=== PATIENT | female | born 1990 | race Caucasian/White ===

== ENCOUNTER 2017-02-24 16:15 | Emergency (ER) | payer MEDICAID ==
[~2017-02-24] VITALS: Ht 180011.9 cm; Wt 89.5 kg
[~2017-02-24 16:15] MED LIST: CETI10TA18 PO; CHOL2000 PO; CLON-529 PO; CYAN250010 PO; ESCI20TA38 PO; FLUT16SP26 BOTHNARES; IBUP-1985 PO; LORA1TAB PO; LURA120T PO; RANI-366 PO; RISP2TAB97 PO; TOP100T PO
[2017-02-24] MEDS ORDERED: RISP1TAB13 PO (16:51)
[2017-02-24] MEDS ORDERED: LORA1TAB PO (16:53)
[2017-02-24] MEDS ORDERED: OLAN5TAB3 PO (16:55)
[2017-02-24 18:04] LABS: BASOPHILS % (AUTO) 0.4 % (0-1); EOSINOPHILS % (AUTO) 0.6 % (0-6); HEMATOCRIT 35.2 % (35.0-45.0); HEMOGLOBIN 11.9 g/dl (12.0-16.0); LYMPHOCYTES # (AUTO) 1.5 X10'3 (1.1-4.8); LYMPHOCYTES % (AUTO) 31.2 % (21-51); MEAN CORPUSCULAR HEMOGLOBIN 28.6 PG (27.0-31.0); MEAN CORPUSCULAR HGB CONC 33.8 % (33.0-36.5); MEAN CORPUSCULAR VOLUME 84.6 FL (78-98); MEAN PLATELET VOLUME 8.8 FL (7.4-10.4); MONOCYTES # (AUTO) 0.3 X10'3 (0-0.9); MONOCYTES % (AUTO) 5.6 % (2-12); NEUTROPHILS % (AUTO) 62.2 % (42-75); PLATELET COUNT 65 X10'3 (140-440); RED BLOOD COUNT 4.17 X10'6 (4.20-5.60); RED CELL DISTRIBUTION WIDTH 14.2 % (11.5-14.5); WHITE BLOOD COUNT 4.8 X10'3 (4.5-11.0)
[2017-02-24 18:14] LABS: URINE HCG NEGATIVE (NEG)
[2017-02-24 18:15] LABS: CLARITY,URINE CLEAR (Clear); COLOR,URINE YELLOW (Yellow); GLUCOSE, URINE NEGATIVE (Neg); KETONES,URINE NEGATIVE (Neg); LEUKOCYTE ESTERASE ,URINE NEGATIVE (Neg); NITRITES, URINE NEGATIVE (Neg); OCCULT BLOOD,URINE TRACE-LYSED (Neg); PROTEIN,URINE NEGATIVE (Neg); UROBILINOGEN,URINE 0.2 E.U/dL (0.2-1.0)
[2017-02-24 18:17] LABS: UA COLLECTION TYPE VOIDED
[2017-02-24 18:19] LABS: URINE AMPHETAMINE SCREEN NEGATIVE (Neg); URINE BARBITUATE SCREEN NEGATIVE (Neg); URINE BENZODIAZEPINES SCREEN NEGATIVE (Neg); URINE CANNABINOID SCREEN NEGATIVE (Neg); URINE COCAINE SCREEN NEGATIVE (Neg); URINE METHADONE SCREEN NEGATIVE (Neg); URINE OPIATE SCREEN NEGATIVE (Neg); URINE PHENCYCLIDINE SCREEN NEGATIVE (Neg)
[2017-02-24 18:22] LABS: BACTERIA,URINE FEW /HPF (Neg); RBC,URINE 0-2 /HPF (0-2); SQUAMOUS EPITHELIAL CELL,UR MODERATE /LPF (FEW); WBC,URINE 0-4 /HPF (0-4)
[2017-02-24 18:24] LABS: ALANINE AMINOTRANSFERASE 111 U/L (12-78); ALBUMIN 3.4 G/DL (3.4-5.0); ALBUMIN/GLOBULIN RATIO 0.9 (1.1-1.5); ALKALINE PHOSPHATASE 167 IU/L (46-116); ANION GAP 11 (8-16); ASPARTATE AMINO TRANSFERASE 55 U/L (10-37); BILIRUBIN,TOTAL 0.4 MG/DL (0.1-1.0); BLOOD UREA NITROGEN 12 MG/DL (7-18); BUN/CREATININE RATIO 16.2 (6.6-38.0); CALCIUM 9.1 MG/DL (8.5-10.1); CHLORIDE 113 MMOL/L (99-107); CREATININE 0.74 MG/DL (0.40-0.90); GLUCOSE 119 MG/DL (70-104); POTASSIUM 3.4 MMOL/L (3.5-5.1); SODIUM 147 MMOL/L (135-145); TOTAL CARBON DIOXIDE 23.4 MMOL/L (24-32); TOTAL PROTEIN 7.3 G/DL (6.4-8.2); eGFR > 90 ML/MIN
[2017-02-24 18:30] LABS: ETHANOL < 0.010 GM/DL (0.0-0.010)
[2017-02-25] MEDS: cloNIDine 0.1 mg tablet PO SCH ×2 (02:23→20:42)
[2017-02-25] MEDS: OLANZapine 2.5MG tablet PO SCH ×2 (02:23→20:42)
[2017-02-25] MEDS ORDERED: non-formulary drug (Ranitidine Hcl (Zantac) 150 MG) PO SCH (07:00)
[2017-02-25] MEDS: famotidine 20mg tablet PO SCH ×3 (07:00→17:28)
[2017-02-25] MEDS: topiramate 100mg tablet PO SCH ×3 (07:50→20:42)
[2017-02-25] MEDS: vitamin D (cholecalciferol) 1,000 unit tablet PO SCH (07:50)
[2017-02-25] MEDS: risperiDONE 0.5mg tablet PO SCH (07:50)
[2017-02-25] MEDS: cyanocobalamin 500mcg tablet PO SCH (08:38)
[2017-02-25] MEDS: cetirizine 10mg tablet PO SCH (08:39)
[2017-02-25] MEDS: fluticasone nasal spray 16GM bottle NS PRN (08:40)
[2017-02-25] MEDS: lithium carbonate 150mg capsule PO SCH (20:42)
[2017-02-26] MEDS: topiramate 100mg tablet PO SCH ×2 (08:43→20:54)
[2017-02-26] MEDS: famotidine 20mg tablet PO SCH ×2 (08:43→17:50)
[2017-02-26] MEDS: cetirizine 10mg tablet PO SCH (08:43)
[2017-02-26] MEDS: risperiDONE 0.5mg tablet PO SCH (08:43)
[2017-02-26] MEDS: vitamin D (cholecalciferol) 1,000 unit tablet PO SCH (08:43)
[2017-02-26] MEDS: cyanocobalamin 500mcg tablet PO SCH (08:44)
[2017-02-26] MEDS: lithium carbonate 150mg capsule PO SCH ×2 (08:44→20:48)
[2017-02-26] MEDS: OLANZapine 2.5MG tablet PO SCH (20:47)
[2017-02-26] MEDS: cloNIDine 0.1 mg tablet PO SCH (20:48)
[2017-02-26] MEDS: LORazepam 1 MG tablet PO PRN (20:48)
[2017-02-27] MEDS: cyanocobalamin 500mcg tablet PO SCH (09:07)
[2017-02-27] MEDS: topiramate 100mg tablet PO SCH ×2 (09:08→20:31)
[2017-02-27] MEDS: famotidine 20mg tablet PO SCH ×2 (09:08→17:48)
[2017-02-27] MEDS: risperiDONE 0.5mg tablet PO SCH (09:08)
[2017-02-27] MEDS: cetirizine 10mg tablet PO SCH (09:09)
[2017-02-27] MEDS: vitamin D (cholecalciferol) 1,000 unit tablet PO SCH (09:09)
[2017-02-27] MEDS: lithium carbonate 150mg capsule PO SCH ×2 (09:09→20:33)
[2017-02-27] MEDS: cloNIDine 0.1 mg tablet PO SCH (20:31)
[2017-02-27] MEDS: OLANZapine 5mg rapidly disint. tablet PO SCH (20:31)
[2017-02-27] MEDS: ibuprofen 200mg tablet PO PRN (20:33)
[2017-02-28] MEDS: famotidine 20mg tablet PO SCH ×2 (08:24→16:21)
[2017-02-28] MEDS: OLANZapine 5mg rapidly disint. tablet PO SCH ×2 (08:25→20:28)
[2017-02-28] MEDS: vitamin D (cholecalciferol) 1,000 unit tablet PO SCH (08:25)
[2017-02-28] MEDS: risperiDONE 0.5mg tablet PO SCH (08:25)
[2017-02-28] MEDS: cetirizine 10mg tablet PO SCH (08:25)
[2017-02-28] MEDS: lithium carbonate 150mg capsule PO SCH ×2 (08:25→20:26)
[2017-02-28] MEDS: topiramate 100mg tablet PO SCH ×2 (08:25→20:27)
[2017-02-28] MEDS: cyanocobalamin 500mcg tablet PO SCH (08:34)
[2017-02-28] MEDS: fluticasone nasal spray 16GM bottle NS PRN (08:34)
[2017-02-28] MEDS: LORazepam 1 MG tablet PO PRN ×2 (11:12→20:27)
[2017-02-28] MEDS: ibuprofen 200mg tablet PO PRN (12:13)
[2017-02-28] MEDS: cloNIDine 0.1 mg tablet PO SCH (20:27)
[2017-03-01] MEDS: famotidine 20mg tablet PO SCH ×2 (08:01→17:34)
[2017-03-01] MEDS: OLANZapine 5mg rapidly disint. tablet PO SCH ×2 (08:01→20:34)
[2017-03-01] MEDS: cetirizine 10mg tablet PO SCH (08:01)
[2017-03-01] MEDS: cyanocobalamin 500mcg tablet PO SCH (08:01)
[2017-03-01] MEDS: vitamin D (cholecalciferol) 1,000 unit tablet PO SCH (08:01)
[2017-03-01] MEDS: topiramate 100mg tablet PO SCH ×2 (08:02→20:34)
[2017-03-01] MEDS: risperiDONE 0.5mg tablet PO SCH (08:02)
[2017-03-01] MEDS: lithium carbonate 150mg capsule PO SCH ×2 (08:02→20:34)
[2017-03-01] MEDS: fluticasone nasal spray 16GM bottle NS PRN (08:03)
[2017-03-01] MEDS: LORazepam 1 MG tablet PO PRN (20:34)
[2017-03-01] MEDS: cloNIDine 0.1 mg tablet PO SCH (20:34)
[2017-03-02] MEDS: fluticasone nasal spray 16GM bottle NS PRN (06:44)
[2017-03-02] MEDS: risperiDONE 0.5mg tablet PO SCH (07:29)
[2017-03-02] MEDS: cetirizine 10mg tablet PO SCH (07:29)
[2017-03-02] MEDS: vitamin D (cholecalciferol) 1,000 unit tablet PO SCH (07:29)
[2017-03-02] MEDS: famotidine 20mg tablet PO SCH ×2 (07:29→17:19)
[2017-03-02] MEDS: OLANZapine 5mg rapidly disint. tablet PO SCH ×2 (07:30→20:31)
[2017-03-02] MEDS: cyanocobalamin 500mcg tablet PO SCH (07:32)
[2017-03-02] MEDS: topiramate 100mg tablet PO SCH ×2 (07:42→20:32)
[2017-03-02] MEDS: lithium carbonate 300mg SR tablet (LithoBID) PO SCH (08:16)
[2017-03-02] MEDS: cloNIDine 0.1 mg tablet PO SCH (20:31)
[2017-03-02] MEDS: lithium carbonate 150mg capsule PO SCH (20:32)
[2017-03-03] MEDS: famotidine 20mg tablet PO SCH ×2 (07:18→17:18)
[2017-03-03] MEDS: lithium carbonate 300mg SR tablet (LithoBID) PO SCH (08:35)
[2017-03-03] MEDS: OLANZapine 5mg rapidly disint. tablet PO SCH ×2 (08:35→20:46)
[2017-03-03] MEDS: topiramate 100mg tablet PO SCH ×2 (08:35→21:03)
[2017-03-03] MEDS: vitamin D (cholecalciferol) 1,000 unit tablet PO SCH (08:35)
[2017-03-03] MEDS: risperiDONE 0.5mg tablet PO SCH (08:36)
[2017-03-03] MEDS: cetirizine 10mg tablet PO SCH (08:36)
[2017-03-03] MEDS: fluticasone nasal spray 16GM bottle NS PRN (08:40)
[2017-03-03] MEDS: cyanocobalamin 500mcg tablet PO SCH (10:48)
[2017-03-03] MEDS: LORazepam 1 MG tablet PO PRN ×2 (12:31→20:46)
[2017-03-03] MEDS: lithium carbonate 150mg capsule PO SCH (20:46)
[2017-03-03] MEDS: cloNIDine 0.1 mg tablet PO SCH (20:46)
[2017-03-04] MEDS: lithium carbonate 300mg SR tablet (LithoBID) PO SCH (07:59)
[2017-03-04] MEDS: vitamin D (cholecalciferol) 1,000 unit tablet PO SCH (07:59)
[2017-03-04] MEDS: famotidine 20mg tablet PO SCH ×2 (07:59→17:27)
[2017-03-04] MEDS: LORazepam 1 MG tablet PO PRN (07:59)
[2017-03-04] MEDS: OLANZapine 5mg rapidly disint. tablet PO SCH (07:59)
[2017-03-04] MEDS: cetirizine 10mg tablet PO SCH (07:59)
[2017-03-04] MEDS: risperiDONE 0.5mg tablet PO SCH (07:59)
[2017-03-04 08:19] LABS: ALANINE AMINOTRANSFERASE 127 U/L (12-78); ALBUMIN 3.6 G/DL (3.4-5.0); ALBUMIN/GLOBULIN RATIO 0.9 (1.1-1.5); ALKALINE PHOSPHATASE 186 IU/L (46-116); ANION GAP 10 (8-16); ASPARTATE AMINO TRANSFERASE 59 U/L (10-37); BILIRUBIN,TOTAL 0.5 MG/DL (0.1-1.0); BLOOD UREA NITROGEN 12 MG/DL (7-18); BUN/CREATININE RATIO 18.5 (6.6-38.0); CALCIUM 9.3 MG/DL (8.5-10.1); CHLORIDE 110 MMOL/L (99-107); CREATININE 0.65 MG/DL (0.40-0.90); GLUCOSE 90 MG/DL (70-104); LIPASE 258 U/L (73-393); POTASSIUM 3.7 MMOL/L (3.5-5.1); SODIUM 142 MMOL/L (135-145); TOTAL CARBON DIOXIDE 22.4 MMOL/L (24-32); TOTAL PROTEIN 7.7 G/DL (6.4-8.2); eGFR > 90 ML/MIN
[2017-03-04] MEDS ORDERED: LORazepam 1 MG tablet PO ONE (08:45)
[2017-03-04] MEDS ORDERED: chlordiazePOXIDE 25mg capsule PO ONE (08:45)
[2017-03-04] MEDS: topiramate 100mg tablet PO SCH (09:14)
[2017-03-04] MEDS: cyanocobalamin 500mcg tablet PO SCH (09:15)
[2017-03-04] MEDS ORDERED: OLAN10TA3 PO (09:16)
[2017-03-04] MEDS ORDERED: OLAN5TAB3 PO (09:16)
[2017-03-04] MEDS: fluticasone nasal spray 16GM bottle NS PRN (09:22)
[2017-03-04 17:36] VITALS: BP 103/73
== END 2017-03-04 17:46 | disposition home or self-care (01) ==
LOC: ER 16:16
DX: F31.89 Other bipolar disorder (principal); R45.850 Homicidal ideations; R62.59 Other lack of expected normal physiological development in childhood; Z88.2 Allergy status to sulfonamides; Z79.899 Other long term (current) drug therapy
CPT/HCPCS: 36415; 80053; 80178; 80305; 80320; 81001; 81025; 83690; 84443; 85025; 99285

== ENCOUNTER 2017-03-14 13:51 | Emergency (ER) | payer MEDICAID ==
[~2017-03-14] VITALS: Ht 5852547 cm; Wt 90.9 kg
[~2017-03-14 13:51] MED LIST changes: -ESCI20TA38 PO; -LURA120T PO; +OLAN10TA3 PO; +OLAN5TAB3 PO; +RISP1TAB13 PO; -RISP2TAB97 PO
[2017-03-14 14:30] LABS: BASOPHILS % (AUTO) 0.2 % (0-1); EOSINOPHILS # (AUTO) 0.1 X10'3 (0-0.9); EOSINOPHILS % (AUTO) 1.3 % (0-6); HEMATOCRIT 38.7 % (35.0-45.0); HEMOGLOBIN 13.1 g/dl (12.0-16.0); LYMPHOCYTES # (AUTO) 1.6 X10'3 (1.1-4.8); LYMPHOCYTES % (AUTO) 29.9 % (21-51); MEAN CORPUSCULAR HEMOGLOBIN 28.6 PG (27.0-31.0); MEAN CORPUSCULAR HGB CONC 33.9 % (33.0-36.5); MEAN CORPUSCULAR VOLUME 84.4 FL (78-98); MEAN PLATELET VOLUME 9.3 FL (7.4-10.4); MONOCYTES # (AUTO) 0.2 X10'3 (0-0.9); MONOCYTES % (AUTO) 4.3 % (2-12); NEUTROPHILS # (AUTO) 3.4 X10'3 (1.8-7.7); NEUTROPHILS % (AUTO) 64.3 % (42-75); PLATELET COUNT 84 X10'3 (140-440); RED BLOOD COUNT 4.59 X10'6 (4.20-5.60); RED CELL DISTRIBUTION WIDTH 14.6 % (11.5-14.5); WHITE BLOOD COUNT 5.3 X10'3 (4.5-11.0)
[2017-03-14 14:53] LABS: ALANINE AMINOTRANSFERASE 129 U/L (12-78); ALBUMIN 3.7 G/DL (3.4-5.0); ALBUMIN/GLOBULIN RATIO 0.9 (1.1-1.5); ALKALINE PHOSPHATASE 192 IU/L (46-116); ANION GAP 13 (8-16); ASPARTATE AMINO TRANSFERASE 65 U/L (10-37); BILIRUBIN,TOTAL 0.4 MG/DL (0.1-1.0); BLOOD UREA NITROGEN 9 MG/DL (7-18); CALCIUM 9.5 MG/DL (8.5-10.1); CHLORIDE 111 MMOL/L (99-107); ETHANOL < 0.010 GM/DL (0.0-0.010); GLUCOSE 90 MG/DL (70-104); POTASSIUM 3.5 MMOL/L (3.5-5.1); SODIUM 146 MMOL/L (135-145); TOTAL CARBON DIOXIDE 22.2 MMOL/L (24-32); TOTAL PROTEIN 7.9 G/DL (6.4-8.2); eGFR > 90 ML/MIN
[2017-03-14] MEDS ORDERED: CYAN-19 PO (19:29)
[2017-03-14] MEDS ORDERED: LIT300C PO (19:34)
[2017-03-14 19:42] LABS: URINE HCG NEGATIVE (NEG)
[2017-03-14 19:46] LABS: CLARITY,URINE CLEAR (Clear); COLOR,URINE YELLOW (Yellow); GLUCOSE, URINE NEGATIVE (Neg); KETONES,URINE NEGATIVE (Neg); LEUKOCYTE ESTERASE ,URINE TRACE (Neg); NITRITES, URINE NEGATIVE (Neg); OCCULT BLOOD,URINE NEGATIVE (Neg); PROTEIN,URINE NEGATIVE (Neg); UROBILINOGEN,URINE 0.2 E.U/dL (0.2-1.0)
[2017-03-14 19:50] LABS: UA COLLECTION TYPE NON-SPECIFIED
[2017-03-14 19:51] LABS: BACTERIA,URINE FEW /HPF (Neg); RBC,URINE 0-2 /HPF (0-2); SQUAMOUS EPITHELIAL CELL,UR MODERATE /LPF (FEW)
[2017-03-14 19:52] LABS: URINE AMPHETAMINE SCREEN NEGATIVE (Neg); URINE BARBITUATE SCREEN NEGATIVE (Neg); URINE BENZODIAZEPINES SCREEN NEGATIVE (Neg); URINE CANNABINOID SCREEN NEGATIVE (Neg); URINE COCAINE SCREEN NEGATIVE (Neg); URINE METHADONE SCREEN NEGATIVE (Neg); URINE OPIATE SCREEN NEGATIVE (Neg); URINE PHENCYCLIDINE SCREEN NEGATIVE (Neg)
[2017-03-14] MEDS ORDERED: haloperidol lactate 5mg/ml inj IM PRN (19:55)
[2017-03-14] MEDS: LORazepam 1 MG tablet PO PRN (20:25)
[2017-03-14] MEDS: topiramate 100mg tablet PO SCH (20:25)
[2017-03-14] MEDS: OLANZapine 5mg rapidly disint. tablet PO SCH (20:25)
[2017-03-14] MEDS: lithium carbonate 300mg SR tablet (LithoBID) PO SCH (20:25)
[2017-03-14] MEDS: cloNIDine 0.1 mg tablet PO SCH (20:25)
[2017-03-15] MEDS: vitamin D (cholecalciferol) 1,000 unit tablet PO SCH (08:40)
[2017-03-15] MEDS: topiramate 100mg tablet PO SCH ×2 (08:40→19:33)
[2017-03-15] MEDS: OLANZapine 5mg rapidly disint. tablet PO SCH ×2 (08:40→19:32)
[2017-03-15] MEDS: lithium carbonate 300mg SR tablet (LithoBID) PO SCH ×2 (08:41→19:33)
[2017-03-15] MEDS: cetirizine 10mg tablet PO SCH (08:41)
[2017-03-15] MEDS: cyanocobalamin 500mcg tablet PO SCH (08:42)
[2017-03-15] MEDS: famotidine 20mg tablet PO SCH ×2 (08:51→19:32)
[2017-03-15] MEDS: LORazepam 1 MG tablet PO PRN (19:32)
[2017-03-15] MEDS: cloNIDine 0.1 mg tablet PO SCH (19:33)
[2017-03-16] MEDS: vitamin D (cholecalciferol) 1,000 unit tablet PO SCH (07:39)
[2017-03-16] MEDS: famotidine 20mg tablet PO SCH ×2 (07:40→17:15)
[2017-03-16] MEDS: lithium carbonate 300mg SR tablet (LithoBID) PO SCH ×2 (07:40→20:19)
[2017-03-16] MEDS: OLANZapine 5mg rapidly disint. tablet PO SCH ×2 (07:40→20:21)
[2017-03-16] MEDS: cetirizine 10mg tablet PO SCH (07:40)
[2017-03-16] MEDS: topiramate 100mg tablet PO SCH ×2 (07:40→20:27)
[2017-03-16] MEDS: cyanocobalamin 500mcg tablet PO SCH (09:01)
[2017-03-16] MEDS: cloNIDine 0.1 mg tablet PO SCH (20:20)
[2017-03-16] MEDS: LORazepam 1 MG tablet PO PRN (20:20)
[2017-03-16] MEDS: haloperidol 5mg tablet PO PRN (20:22)
[2017-03-16 23:35] LABS: BASOPHILS % (AUTO) 0.3 % (0-1); EOSINOPHILS # (AUTO) 0.1 X10'3 (0-0.9); HEMATOCRIT 36.4 % (35.0-45.0); HEMOGLOBIN 12.4 g/dl (12.0-16.0); LYMPHOCYTES # (AUTO) 1.8 X10'3 (1.1-4.8); LYMPHOCYTES % (AUTO) 32.6 % (21-51); MEAN CORPUSCULAR HEMOGLOBIN 28.5 PG (27.0-31.0); MEAN PLATELET VOLUME 8.6 FL (7.4-10.4); MONOCYTES # (AUTO) 0.3 X10'3 (0-0.9); MONOCYTES % (AUTO) 5.5 % (2-12); NEUTROPHILS # (AUTO) 3.4 X10'3 (1.8-7.7); NEUTROPHILS % (AUTO) 60.6 % (42-75); PLATELET COUNT 75 X10'3 (140-440); RED BLOOD COUNT 4.34 X10'6 (4.20-5.60); RED CELL DISTRIBUTION WIDTH 14.1 % (11.5-14.5); WHITE BLOOD COUNT 5.6 X10'3 (4.5-11.0)
[2017-03-16 23:48] LABS: ALANINE AMINOTRANSFERASE 106 U/L (12-78); ALBUMIN 3.5 G/DL (3.4-5.0); ALBUMIN/GLOBULIN RATIO 0.9 (1.1-1.5); ALKALINE PHOSPHATASE 172 IU/L (46-116); ANION GAP 11 (8-16); ASPARTATE AMINO TRANSFERASE 52 U/L (10-37); BILIRUBIN,TOTAL 0.5 MG/DL (0.1-1.0); BLOOD UREA NITROGEN 11 MG/DL (7-18); BUN/CREATININE RATIO 13.8 (6.6-38.0); CALCIUM 9.3 MG/DL (8.5-10.1); CHLORIDE 111 MMOL/L (99-107); GLUCOSE 96 MG/DL (70-104); POTASSIUM 3.5 MMOL/L (3.5-5.1); SODIUM 144 MMOL/L (135-145); TOTAL CARBON DIOXIDE 22.1 MMOL/L (24-32); TOTAL PROTEIN 7.3 G/DL (6.4-8.2); eGFR 88 ML/MIN
[2017-03-17] MEDS: lithium carbonate 300mg SR tablet (LithoBID) PO SCH ×2 (07:44→21:07)
[2017-03-17] MEDS: cyanocobalamin 500mcg tablet PO SCH (07:44)
[2017-03-17] MEDS: topiramate 100mg tablet PO SCH ×2 (07:44→21:07)
[2017-03-17] MEDS: vitamin D (cholecalciferol) 1,000 unit tablet PO SCH (07:44)
[2017-03-17] MEDS: cetirizine 10mg tablet PO SCH (07:45)
[2017-03-17] MEDS: famotidine 20mg tablet PO SCH ×2 (07:45→17:03)
[2017-03-17] MEDS: OLANZapine 5mg rapidly disint. tablet PO SCH ×2 (07:46→21:07)
[2017-03-17] MEDS: LORazepam 1 MG tablet PO PRN (09:08)
[2017-03-17] MEDS ORDERED: diphenoxylate/atropine tablet (Lomotil) PO ONE (19:00)
[2017-03-17] MEDS: cloNIDine 0.1 mg tablet PO SCH (20:36)
[2017-03-18] MEDS: OLANZapine 5mg rapidly disint. tablet PO SCH ×2 (07:54→20:34)
[2017-03-18] MEDS: topiramate 100mg tablet PO SCH ×2 (07:54→20:34)
[2017-03-18] MEDS: vitamin D (cholecalciferol) 1,000 unit tablet PO SCH (07:54)
[2017-03-18] MEDS: famotidine 20mg tablet PO SCH ×2 (07:54→17:08)
[2017-03-18] MEDS: lithium carbonate 300mg SR tablet (LithoBID) PO SCH ×2 (07:55→20:33)
[2017-03-18] MEDS: cyanocobalamin 500mcg tablet PO SCH (07:55)
[2017-03-18] MEDS: cetirizine 10mg tablet PO SCH (08:29)
[2017-03-18] MEDS: cloNIDine 0.1 mg tablet PO SCH (20:34)
[2017-03-18] MEDS: fluticasone nasal spray 16GM bottle NS PRN (21:21)
[2017-03-19] MEDS: lithium carbonate 300mg SR tablet (LithoBID) PO SCH ×2 (07:42→20:24)
[2017-03-19] MEDS: vitamin D (cholecalciferol) 1,000 unit tablet PO SCH (07:42)
[2017-03-19] MEDS: cyanocobalamin 500mcg tablet PO SCH (07:42)
[2017-03-19] MEDS: OLANZapine 5mg rapidly disint. tablet PO SCH ×2 (07:43→20:24)
[2017-03-19] MEDS: famotidine 20mg tablet PO SCH ×2 (07:43→17:11)
[2017-03-19] MEDS: cetirizine 10mg tablet PO SCH (07:43)
[2017-03-19] MEDS: topiramate 100mg tablet PO SCH ×2 (08:04→20:24)
[2017-03-19] MEDS: LORazepam 1 MG tablet PO PRN (14:32)
[2017-03-19] MEDS: cloNIDine 0.1 mg tablet PO SCH (20:24)
[2017-03-20] MEDS: famotidine 20mg tablet PO SCH ×2 (07:59→18:31)
[2017-03-20] MEDS: lithium carbonate 300mg SR tablet (LithoBID) PO SCH ×2 (08:00→20:42)
[2017-03-20] MEDS: OLANZapine 5mg rapidly disint. tablet PO SCH ×2 (08:00→20:41)
[2017-03-20] MEDS: cyanocobalamin 500mcg tablet PO SCH (08:00)
[2017-03-20] MEDS: cetirizine 10mg tablet PO SCH (08:00)
[2017-03-20] MEDS: vitamin D (cholecalciferol) 1,000 unit tablet PO SCH (08:00)
[2017-03-20] MEDS: topiramate 100mg tablet PO SCH ×2 (08:55→20:42)
[2017-03-20] MEDS: cloNIDine 0.1 mg tablet PO SCH (20:42)
[2017-03-21] MEDS: lithium carbonate 300mg SR tablet (LithoBID) PO SCH ×2 (08:09→20:21)
[2017-03-21] MEDS: vitamin D (cholecalciferol) 1,000 unit tablet PO SCH (08:09)
[2017-03-21] MEDS: OLANZapine 5mg rapidly disint. tablet PO SCH ×2 (08:09→20:21)
[2017-03-21] MEDS: cyanocobalamin 500mcg tablet PO SCH (08:09)
[2017-03-21] MEDS: famotidine 20mg tablet PO SCH ×2 (08:09→17:39)
[2017-03-21] MEDS: cetirizine 10mg tablet PO SCH (08:09)
[2017-03-21] MEDS: topiramate 100mg tablet PO SCH ×2 (08:29→20:20)
[2017-03-21] MEDS: LORazepam 1 MG tablet PO PRN (10:06)
[2017-03-21] MEDS: cloNIDine 0.1 mg tablet PO SCH (20:21)
[2017-03-22] MEDS: haloperidol 5mg tablet PO PRN (07:55)
[2017-03-22] MEDS: vitamin D (cholecalciferol) 1,000 unit tablet PO SCH (07:55)
[2017-03-22] MEDS: OLANZapine 5mg rapidly disint. tablet PO SCH ×2 (07:55→20:03)
[2017-03-22] MEDS: topiramate 100mg tablet PO SCH ×2 (07:55→20:03)
[2017-03-22] MEDS: famotidine 20mg tablet PO SCH ×2 (07:55→17:22)
[2017-03-22] MEDS: lithium carbonate 300mg SR tablet (LithoBID) PO SCH ×2 (07:55→20:03)
[2017-03-22] MEDS: cetirizine 10mg tablet PO SCH (07:55)
[2017-03-22] MEDS: diphenhydrAMINE 25mg capsule PO PRN (07:55)
[2017-03-22] MEDS: cyanocobalamin 500mcg tablet PO SCH (07:55)
[2017-03-22] MEDS: fluticasone nasal spray 16GM bottle NS PRN (13:48)
[2017-03-22] MEDS: LORazepam 1 MG tablet PO PRN (20:03)
[2017-03-22] MEDS: cloNIDine 0.1 mg tablet PO SCH (20:03)
[2017-03-23] MEDS: famotidine 20mg tablet PO SCH ×2 (07:20→17:11)
[2017-03-23] MEDS: vitamin D (cholecalciferol) 1,000 unit tablet PO SCH (08:04)
[2017-03-23] MEDS: cyanocobalamin 500mcg tablet PO SCH (08:04)
[2017-03-23] MEDS: cetirizine 10mg tablet PO SCH (08:04)
[2017-03-23] MEDS: lithium carbonate 300mg SR tablet (LithoBID) PO SCH ×2 (08:05→20:29)
[2017-03-23] MEDS: topiramate 100mg tablet PO SCH ×2 (08:05→20:29)
[2017-03-23] MEDS: OLANZapine 5mg rapidly disint. tablet PO SCH ×2 (08:05→20:29)
[2017-03-23] MEDS: diphenhydrAMINE 25mg capsule PO PRN (11:19)
[2017-03-23] MEDS: haloperidol 5mg tablet PO PRN (11:19)
[2017-03-23] MEDS: LORazepam 1 MG tablet PO PRN ×2 (13:23→18:49)
[2017-03-23] MEDS: cloNIDine 0.1 mg tablet PO SCH (21:39)
[2017-03-24 06:00] VITALS: BP 117/77
[2017-03-24] MEDS: famotidine 20mg tablet PO SCH (08:35)
[2017-03-24] MEDS: topiramate 100mg tablet PO SCH (08:35)
[2017-03-24] MEDS: cetirizine 10mg tablet PO SCH (08:35)
[2017-03-24] MEDS: haloperidol 5mg tablet PO PRN (08:35)
[2017-03-24] MEDS: vitamin D (cholecalciferol) 1,000 unit tablet PO SCH (08:35)
[2017-03-24] MEDS: diphenhydrAMINE 25mg capsule PO PRN (08:35)
[2017-03-24] MEDS: OLANZapine 5mg rapidly disint. tablet PO SCH (08:35)
[2017-03-24] MEDS: lithium carbonate 300mg SR tablet (LithoBID) PO SCH (08:36)
[2017-03-24] MEDS: LORazepam 1 MG tablet PO PRN (08:36)
[2017-03-24] MEDS: cyanocobalamin 500mcg tablet PO SCH (08:36)
== END 2017-03-24 17:07 | disposition home or self-care (01) ==
LOC: ER 13:51
DX: R45.851 Suicidal ideations (principal); F31.9 Bipolar disorder, unspecified; Z88.2 Allergy status to sulfonamides; Z79.899 Other long term (current) drug therapy
CPT/HCPCS: 36415; 80053; 80178; 80305; 80320; 81001; 81025; 84443; 85025; 99285; Q0163

== ENCOUNTER 2021-07-26 18:18 | Emergency (ER) | payer MEDICAID ==
[~2021-07-26] VITALS: Ht 165.1 cm; Wt 93.5 kg
[~2021-07-26 18:18] MED LIST changes: -CETI10TA18 PO; +CETI10TA19 PO; +CYAN100019 PO; -CYAN250010 PO; -IBUP-1985 PO; +LIT300C PO; -OLAN10TA3 PO
[2021-07-26 19:52] LABS: BASOPHILS % (AUTO) 0.2 % (0-1); EOSINOPHILS % (AUTO) 0 % (0-6); HEMATOCRIT 32.2 % (35.0-45.0); HEMOGLOBIN 10.6 g/dl (12.0-16.0); LYMPHOCYTES # (AUTO) 1.2 X10'3 (1.1-4.8); MEAN CORPUSCULAR HGB CONC 32.9 g/dL (33.0-36.5); MEAN CORPUSCULAR VOLUME 85.1 FL (78-98); MEAN PLATELET VOLUME 8.8 FL (7.4-10.4); MONOCYTES # (AUTO) 0.3 X10'3 (0-0.9); MONOCYTES % (AUTO) 6.8 % (2-12); NEUTROPHILS # (AUTO) 2.4 X10'3 (1.8-7.7); PLATELET COUNT 105 X10'3 (140-440); RED BLOOD COUNT 3.79 X10'6 (4.20-5.60); RED CELL DISTRIBUTION WIDTH 15.2 % (11.5-14.5); WHITE BLOOD COUNT 3.9 X10'3 (4.5-11.0)
[2021-07-26 20:07] LABS: ALBUMIN 3.5 G/DL (3.4-5.0); ANION GAP 12 (8-16); BILIRUBIN,TOTAL 0.5 MG/DL (0.1-1.0); BLOOD UREA NITROGEN 23 MG/DL (7-18); BUN/CREATININE RATIO 21.7 (6.6-38.0); CALCIUM 9.1 MG/DL (8.5-10.1); CHLORIDE 107 MMOL/L (99-107); CREATININE 1.06 MG/DL (0.40-0.90); GLUCOSE 120 MG/DL (70-104); POTASSIUM 3.4 MMOL/L (3.5-5.1); SODIUM 144 MMOL/L (135-145); TOTAL CARBON DIOXIDE 25.2 MMOL/L (24-32); TOTAL PROTEIN 7.4 G/DL (6.4-8.2); eGFR 62 ML/MIN
[2021-07-26 20:08] LABS: ALANINE AMINOTRANSFERASE 55 U/L (12-78); ALBUMIN/GLOBULIN RATIO 0.9 (1.1-1.5); ALKALINE PHOSPHATASE 136 IU/L (46-116); ASPARTATE AMINO TRANSFERASE 31 U/L (10-37); ETHANOL < 0.010 GM/DL (0.0-0.010); LIPASE 242 U/L (73-393)
[2021-07-26 20:09] LABS: CLARITY,URINE CLEAR (Clear); COLOR,URINE YELLOW (Yellow); GLUCOSE, URINE NEGATIVE (Neg); KETONES,URINE NEGATIVE (Neg); LEUKOCYTE ESTERASE ,URINE NEGATIVE (Neg); NITRITES, URINE NEGATIVE (Neg); OCCULT BLOOD,URINE NEGATIVE (Neg); PH,URINE 6.5 (4.8-8.0); PROTEIN,URINE NEGATIVE (Neg); URINE HCG NEGATIVE (NEG); UROBILINOGEN,URINE 0.2 E.U/dL (0.2-1.0)
[2021-07-26 20:10] LABS: UA COLLECTION TYPE CLN CATCH MIDSTREAM
[2021-07-26 20:20] LABS: HCG SERUM QL NEGATIVE
[2021-07-26 20:30] LABS: URINE AMPHETAMINE SCREEN NEGATIVE (Neg); URINE BARBITUATE SCREEN NEGATIVE (Neg); URINE BENZODIAZEPINES SCREEN NEGATIVE (Neg); URINE CANNABINOID SCREEN NEGATIVE (Neg); URINE COCAINE SCREEN NEGATIVE (Neg); URINE METHADONE SCREEN NEGATIVE (Neg); URINE OPIATE SCREEN NEGATIVE (Neg); URINE PHENCYCLIDINE SCREEN NEGATIVE (Neg)
[2021-07-26] MEDS ORDERED: OLAN5TAB3 PO (20:45)
[2021-07-26] MEDS ORDERED: DIVA250T15 PO (20:45)
[2021-07-26] MEDS ORDERED: TRAZ-256 PO (20:45)
[2021-07-26] MEDS ORDERED: FENO48TA10 PO (20:45)
[2021-07-26] MEDS ORDERED: FLUV100C2 PO (20:45)
[2021-07-26] MEDS ORDERED: MONT10TA21 PO (20:45)
[2021-07-27] MEDS ORDERED: fluticasone nasal spray 16GM bottle NS PRN (02:05)
[2021-07-27] MEDS ORDERED: diphenhydrAMINE 50 mg/ml inj ONE (06:09)
--- NOTE | 2021-07-27 06:25 | NUR ---
[facility] AT THIS TIME.
--- NOTE | 2021-07-27 06:38 | NUR ---
PT SLEEPING IN LFT LATERAL POSITION,RR WNL WILL CONT TO MONITOR.
[2021-07-27] MEDS ORDERED: famotidine 20mg tablet PO SCH (07:00)
--- NOTE | 2021-07-27 07:11 | NUR ---
Pt. was brought over in a w/c from the main ER accompainied by Tech. She is laying in bed sleeping at this time.
[2021-07-27] MEDS ORDERED: OLANZAPINE 5 MG TABLET PO SCH (08:00)
[2021-07-27] MEDS ORDERED: cholecalciferol (vitamin D3) 1,000 unit (25mcg) tablet PO SCH (08:00)
[2021-07-27] MEDS ORDERED: montelukast 10mg tablet PO SCH (08:00)
[2021-07-27] MEDS ORDERED: fluvoxamine 25 MG tablet PO SCH (08:00)
[2021-07-27] MEDS ORDERED: risperiDONE 0.5mg tablet PO SCH (08:00)
[2021-07-27] MEDS ORDERED: topiramate 100mg tablet PO SCH (08:00)
[2021-07-27] MEDS ORDERED: fenofibrate 48mg tablet PO SCH (08:00)
[2021-07-27] MEDS ORDERED: divalproex 250mg tablet, delayed-release PO SCH (08:00)
--- NOTE | 2021-07-27 08:11 | NUR ---
Pt. continues to lay in bed at this time, making ocassional body adjustments. Will awaken for breakfast.
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
--- NOTE | 2021-07-27 10:52 | NUR ---
[facility]
--- NOTE | 2021-07-27 11:20 | NUR ---
[facility] psychiatric social worker supervisor evaluating pt. at this time.
--- NOTE | 2021-07-27 12:08 | NUR ---
Pt. is laying in bed at this time, no s/s of distress noted.
--- NOTE | 2021-07-27 13:02 | NUR ---
Pt. was discharged with her manager managed care who will be transporting her back to pt's [facility]. Tech returned pt's belongings to her. This account underwriter reviewed discharge instructions with pt. and she was sent home with a list of her home medications to continue. Pt. reported understanding. Pt. is able to contract for safety and was provided with Mental Health resources.
[2021-07-27 13:06] VITALS: BP 126/72
[2021-07-27] MEDS ORDERED: traZODone 150mg tablet PO SCH (21:00)
== END 2021-07-27 13:13 | disposition home or self-care (01) ==
LOC: ER 18:18
DX: R45.851 Suicidal ideations (principal); F31.9 Bipolar disorder, unspecified; Z20.822 Contact with and (suspected) exposure to COVID-19; Z88.2 Allergy status to sulfonamides; Z79.899 Other long term (current) drug therapy
CPT/HCPCS: 36415; 80053; 80305; 80320; 81003; 81025; 83690; 84703; 85025; 87635; 99285; C9803; J1200

== ENCOUNTER 2021-11-11 14:16 | Emergency (ER) | payer MEDICAID ==
[~2021-11-11] VITALS: Ht 165.1 cm; Wt 94.1 kg
[~2021-11-11 14:16] MED LIST changes: -CETI10TA19 PO; -CLON-529 PO; -CYAN100019 PO; +DIVA250T15 PO; +FENO48TA10 PO; +FLUV100C2 PO; -LIT300C PO; -LORA1TAB PO; +MONT10TA21 PO; +TRAZ-256 PO
--- NOTE | 2021-11-11 15:30 | NUR ---
Bed currently unavailable, pts caregiver remains with pt and will sit with pt in lobby.
[2021-11-11 16:02] LABS: BASOPHILS % (AUTO) 0.2 % (0-1); EOSINOPHILS % (AUTO) 0 % (0-6); HEMATOCRIT 37.3 % (35.0-45.0); HEMOGLOBIN 12.2 g/dl (12.0-16.0); LYMPHOCYTES # (AUTO) 1.5 X10'3 (1.1-4.8); LYMPHOCYTES % (AUTO) 35.2 % (21-51); MEAN CORPUSCULAR HEMOGLOBIN 27.7 PG (27.0-31.0); MEAN CORPUSCULAR HGB CONC 32.9 g/dL (33.0-36.5); MEAN CORPUSCULAR VOLUME 84.2 FL (78-98); MONOCYTES # (AUTO) 0.3 X10'3 (0-0.9); MONOCYTES % (AUTO) 6.7 % (2-12); NEUTROPHILS # (AUTO) 2.4 X10'3 (1.8-7.7); NEUTROPHILS % (AUTO) 57.9 % (42-75); PLATELET COUNT 100 X10'3 (140-440); RED BLOOD COUNT 4.43 X10'6 (4.20-5.60); RED CELL DISTRIBUTION WIDTH 15.7 % (11.5-14.5); WHITE BLOOD COUNT 4.2 X10'3 (4.5-11.0)
[2021-11-11 16:08] LABS: ALANINE AMINOTRANSFERASE 50 U/L (12-78); ALBUMIN 3.8 G/DL (3.4-5.0); ALKALINE PHOSPHATASE 111 IU/L (46-116); ANION GAP 15 (8-16); ASPARTATE AMINO TRANSFERASE 35 U/L (10-37); BILIRUBIN,TOTAL 0.7 MG/DL (0.1-1.0); BLOOD UREA NITROGEN 20 MG/DL (7-18); CALCIUM 8.9 MG/DL (8.5-10.1); CHLORIDE 104 MMOL/L (99-107); GLUCOSE 89 MG/DL (70-104); POTASSIUM 3.3 MMOL/L (3.5-5.1); SODIUM 143 MMOL/L (135-145); TOTAL CARBON DIOXIDE 23.6 MMOL/L (24-32); TOTAL PROTEIN 7.8 G/DL (6.4-8.2); eGFR 66 ML/MIN
[2021-11-11 16:47] LABS: ETHANOL < 0.010 GM/DL (0.0-0.010)
[2021-11-11] MEDS ORDERED: OLANZapine 2.5MG tablet PO STA (18:32)
[2021-11-11] MEDS ORDERED: olanzapine 10mg tablet PO STA (18:34)
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
[2021-11-11 19:08] LABS: VALPROATE 44 UG/ML (50-100)
[2021-11-11] MEDS ORDERED: TRAZ-251 PO (19:26)
[2021-11-11] MEDS ORDERED: OLAN15TA3 PO (19:26)
[2021-11-11] MEDS ORDERED: OLAN5TAB3 PO (19:27)
[2021-11-11] MEDS ORDERED: FERR324T8 PO (19:27)
[2021-11-11] MEDS ORDERED: fluticasone nasal spray 16GM bottle NS PRN (19:55)
[2021-11-11] MEDS ORDERED: FLUV50TA24 PO (19:59)
[2021-11-11] MEDS ORDERED: divalproex 250mg tablet, delayed-release PO SCH (20:00)
[2021-11-11 20:20] LABS: CLARITY,URINE TURBID (Clear); GLUCOSE, URINE NEGATIVE (Neg); KETONES,URINE TRACE mg/dl (Neg); LEUKOCYTE ESTERASE ,URINE SMALL (Neg); NITRITES, URINE POSITIVE (Neg); OCCULT BLOOD,URINE LARGE (Neg); PH,URINE 6.5 (4.8-8.0); PROTEIN,URINE 100 mg/dl (Neg); URINE HCG NEGATIVE (NEG)
[2021-11-11 20:21] LABS: COLOR,URINE Red (Yellow); UA COLLECTION TYPE NON-SPECIFIED
[2021-11-11 20:28] LABS: RBC,URINE TNTC /HPF (0-2)
[2021-11-11 20:29] LABS: SQUAMOUS EPITHELIAL CELL,UR MANY /LPF (FEW)
[2021-11-11] MEDS: topiramate 100mg tablet PO SCH (20:29)
[2021-11-11 20:32] LABS: URINE AMPHETAMINE SCREEN NEGATIVE (Neg); URINE BARBITUATE SCREEN NEGATIVE (Neg); URINE BENZODIAZEPINES SCREEN NEGATIVE (Neg); URINE CANNABINOID SCREEN NEGATIVE (Neg); URINE COCAINE SCREEN NEGATIVE (Neg); URINE METHADONE SCREEN NEGATIVE (Neg); URINE OPIATE SCREEN NEGATIVE (Neg); URINE PHENCYCLIDINE SCREEN NEGATIVE (Neg)
[2021-11-11 20:33] LABS: BACTERIA,URINE FEW /HPF (Neg)
--- NOTE | 2021-11-11 20:41 | NUR ---
Pt given HS meds without issue.
--- NOTE | 2021-11-11 20:47 | NUR ---
py's belongings inventoried, her 2 baby dolls were searched and allowed to keep at bedside.
--- NOTE | 2021-11-11 20:49 | NUR ---
PT given 2 sandwhiches which she ate, given juice and water
[2021-11-11] MEDS ORDERED: OLANZAPINE 5 MG TABLET PO SCH (21:00)
[2021-11-11] MEDS ORDERED: traZODone 50mg tablet PO SCH (21:00)
--- NOTE | 2021-11-11 23:00 | NUR ---
PT asleep with baby dolls in her arms
--- NOTE | 2021-11-12 02:00 | NUR ---
Pt wakes up momentarily and repositions in bed. warm blanket given to her
--- NOTE | 2021-11-12 03:50 | NUR ---
PT asleep on R side RR 16
--- NOTE | 2021-11-12 05:48 | NUR ---
PACKET FAXED TO [facility]
[2021-11-12 06:11] VITALS: BP 109/71
--- NOTE | 2021-11-12 06:35 | NUR ---
Patient supine in bed but moving around. No distress observed. Continue to monitor.
[2021-11-12] MEDS ORDERED: montelukast 10mg tablet PO SCH (08:00)
[2021-11-12] MEDS ORDERED: fluvoxamine 25 MG tablet PO SCH (08:00)
[2021-11-12] MEDS ORDERED: ferrous sulfate 325mg tablet PO SCH (08:00)
[2021-11-12] MEDS ORDERED: cholecalciferol (vitamin D3) 1,000 unit (25mcg) tablet PO SCH (08:00)
[2021-11-12] MEDS ORDERED: divalproex 250mg tablet, delayed-release PO SCH (08:00)
[2021-11-12] MEDS ORDERED: FLUVOXAMINE MALEATE PO SCH (08:00)
[2021-11-12] MEDS ORDERED: OLANZAPINE 5 MG TABLET PO SCH (08:00)
[2021-11-12] MEDS ORDERED: fenofibrate 48mg tablet PO SCH (08:00)
[2021-11-12] MEDS: topiramate 100mg tablet PO SCH (08:11)
--- NOTE | 2021-11-12 08:11 | NUR ---
Patient eating breakfast. No distress observed. Continue to monitor.
--- NOTE | 2021-11-12 09:40 | NUR ---
Martin FERNANDEZ, evaluating patient. No distress observed. Continue to monitor.
--- NOTE | 2021-11-12 12:01 | NUR ---
Patient eating lunch. No distress observed. Continue to monitor.
--- NOTE | 2021-11-12 14:10 | NUR ---
Patient playing with her dolls. No distress observed. Continue to monitor.
--- NOTE | 2021-11-12 15:24 | NUR ---
patient asleep.We will monitor.
== END 2021-11-12 16:13 | disposition home or self-care (01) ==
LOC: ER 14:17
DX: R45.850 Homicidal ideations (principal); Z20.822 Contact with and (suspected) exposure to COVID-19; F31.9 Bipolar disorder, unspecified; R62.50 Unspecified lack of expected normal physiological development in childhood; Z88.2 Allergy status to sulfonamides; Z79.899 Other long term (current) drug therapy
CPT/HCPCS: 36415; 80053; 80164; 80305; 80320; 81001; 81025; 85025; 87811; 99285

== ENCOUNTER 2022-03-11 22:24 | Emergency (ER) | payer MEDICAID ==
[~2022-03-11] VITALS: Ht 165.1 cm; Wt 68.2 kg
[~2022-03-11 22:24] MED LIST changes: +FERR324T8 PO; -FLUV100C2 PO; +FLUV50TA24 PO; +OLAN15TA3 PO; -RANI-366 PO; -RISP1TAB13 PO; +TRAZ-251 PO; -TRAZ-256 PO
[2022-03-11 23:03] LABS: BASOPHILS % (AUTO) 0.3 % (0-1); EOSINOPHILS % (AUTO) 0 % (0-6); HEMATOCRIT 42.9 % (35.0-45.0); HEMOGLOBIN 14.3 g/dl (12.0-16.0); LYMPHOCYTES # (AUTO) 1.9 X10'3 (1.1-4.8); LYMPHOCYTES % (AUTO) 28.6 % (21-51); MEAN CORPUSCULAR HEMOGLOBIN 29.5 PG (27.0-31.0); MEAN CORPUSCULAR HGB CONC 33.4 g/dL (33.0-36.5); MEAN CORPUSCULAR VOLUME 88.4 FL (78-98); MEAN PLATELET VOLUME 9.1 FL (7.4-10.4); MONOCYTES # (AUTO) 0.4 X10'3 (0-0.9); MONOCYTES % (AUTO) 6.4 % (2-12); NEUTROPHILS # (AUTO) 4.3 X10'3 (1.8-7.7); NEUTROPHILS % (AUTO) 64.7 % (42-75); PLATELET COUNT 95 X10'3 (140-440); RED BLOOD COUNT 4.85 X10'6 (4.20-5.60); RED CELL DISTRIBUTION WIDTH 14.7 % (11.5-14.5); WHITE BLOOD COUNT 6.7 X10'3 (4.5-11.0)
[2022-03-11 23:16] LABS: ALANINE AMINOTRANSFERASE 56 U/L (12-78); ALBUMIN 3.7 G/DL (3.4-5.0); ALBUMIN/GLOBULIN RATIO 0.9 (1.1-1.5); ALKALINE PHOSPHATASE 125 IU/L (46-116); ANION GAP 10 (8-16); ASPARTATE AMINO TRANSFERASE 28 U/L (10-37); BILIRUBIN,TOTAL 0.6 MG/DL (0.1-1.0); BLOOD UREA NITROGEN 21 MG/DL (7-18); BUN/CREATININE RATIO 24.4 (6.6-38.0); CALCIUM 9.5 MG/DL (8.5-10.1); CHLORIDE 104 MMOL/L (99-107); CREATININE 0.86 MG/DL (0.40-0.90); ETHANOL < 0.010 GM/DL (0.0-0.010); GLUCOSE 125 MG/DL (70-104); POTASSIUM 3.5 MMOL/L (3.5-5.1); SODIUM 140 MMOL/L (135-145); TOTAL CARBON DIOXIDE 26.2 MMOL/L (24-32); eGFR 78 ML/MIN
[2022-03-12 05:07] VITALS: BP 113/76
--- NOTE | 2022-03-12 05:43 | NUR ---
aids social worker elissa alcantar cell [phone] out of office today 03-12-22 call for update
[2022-03-12 09:17] LABS: URINE HCG NEGATIVE (NEG)
[2022-03-12 09:31] LABS: URINE AMPHETAMINE SCREEN NEGATIVE (Neg); URINE BARBITUATE SCREEN NEGATIVE (Neg); URINE BENZODIAZEPINES SCREEN NEGATIVE (Neg); URINE CANNABINOID SCREEN NEGATIVE (Neg); URINE COCAINE SCREEN NEGATIVE (Neg); URINE METHADONE SCREEN NEGATIVE (Neg); URINE OPIATE SCREEN NEGATIVE (Neg); URINE PHENCYCLIDINE SCREEN NEGATIVE (Neg)
--- NOTE | 2022-03-12 09:37 | NUR ---
packet faxed to [facility]
--- NOTE | 2022-03-12 09:58 | NUR ---
Received Pt in bed sleeping w/o distress.
[2022-03-12] MEDS ORDERED: acetaminophen 325mg tablet PO ONE (11:55)
[2022-03-12] MEDS ORDERED: OLAN5TAB75 PO (13:46)
[2022-03-12] MEDS ORDERED: FERR325T28 PO (13:46)
[2022-03-12] MEDS ORDERED: TOP100T PO (13:46)
[2022-03-12] MEDS ORDERED: FLUO-12 PO (13:46)
[2022-03-12] MEDS ORDERED: FENO48TA15 PO (13:46)
[2022-03-12] MEDS ORDERED: OLAN5TAB3 PO ×2 (13:46)
[2022-03-12] MEDS ORDERED: MONT10TA21 PO (13:46)
[2022-03-12] MEDS ORDERED: CHOL20004 PO (13:46)
[2022-03-12] MEDS ORDERED: TRAZ-251 PO (13:46)
[2022-03-12] MEDS ORDERED: DIVA125T2 PO (13:46)
[2022-03-12] MEDS ORDERED: HYDR50CA PO (13:46)
[2022-03-12] MEDS ORDERED: DIVA-81 PO (13:46)
== END 2022-03-12 14:46 | disposition home or self-care (01) ==
LOC: ER 22:25
DX: R45.851 Suicidal ideations (principal); Z20.822 Contact with and (suspected) exposure to COVID-19; F20.9 Schizophrenia, unspecified; F31.9 Bipolar disorder, unspecified; Z88.2 Allergy status to sulfonamides
CPT/HCPCS: 36415; 80053; 80305; 80320; 81025; 85025; 87811; 99285

== ENCOUNTER 2022-03-14 16:20 | Emergency (ER) | payer MEDICAID ==
[~2022-03-14] VITALS: Ht 160 cm; Wt 88.5 kg
[~2022-03-14 16:20] MED LIST changes: +CHOL20004 PO; +DIVA-81 PO; +DIVA125T2 PO; +FENO48TA15 PO; +FERR325T28 PO; +FLUO-12 PO; +HYDR50CA PO; +OLAN5TAB75 PO
[2022-03-14 17:35] LABS: BASOPHILS % (AUTO) 0.3 % (0-1); EOSINOPHILS % (AUTO) 0 % (0-6); HEMOGLOBIN 13.1 g/dl (12.0-16.0); LYMPHOCYTES # (AUTO) 1.9 X10'3 (1.1-4.8); LYMPHOCYTES % (AUTO) 32.8 % (21-51); MEAN CORPUSCULAR HEMOGLOBIN 29.6 PG (27.0-31.0); MEAN CORPUSCULAR HGB CONC 33.7 g/dL (33.0-36.5); MEAN CORPUSCULAR VOLUME 87.8 FL (78-98); MONOCYTES # (AUTO) 0.4 X10'3 (0-0.9); MONOCYTES % (AUTO) 7.1 % (2-12); NEUTROPHILS # (AUTO) 3.4 X10'3 (1.8-7.7); NEUTROPHILS % (AUTO) 59.8 % (42-75); PLATELET COUNT 93 X10'3 (140-440); RED BLOOD COUNT 4.44 X10'6 (4.20-5.60); RED CELL DISTRIBUTION WIDTH 14.7 % (11.5-14.5); WHITE BLOOD COUNT 5.7 X10'3 (4.5-11.0)
[2022-03-14 17:42] LABS: URINE HCG NEGATIVE (NEG)
[2022-03-14 17:50] LABS: ALANINE AMINOTRANSFERASE 57 U/L (12-78); ALBUMIN 3.5 G/DL (3.4-5.0); ALBUMIN/GLOBULIN RATIO 0.9 (1.1-1.5); ALKALINE PHOSPHATASE 115 IU/L (46-116); ANION GAP 9 (8-16); ASPARTATE AMINO TRANSFERASE 30 U/L (10-37); BILIRUBIN,TOTAL 0.6 MG/DL (0.1-1.0); BLOOD UREA NITROGEN 20 MG/DL (7-18); CALCIUM 9.3 MG/DL (8.5-10.1); CHLORIDE 105 MMOL/L (99-107); CREATININE 0.87 MG/DL (0.40-0.90); GLUCOSE 94 MG/DL (70-104); POTASSIUM 3.8 MMOL/L (3.5-5.1); SODIUM 143 MMOL/L (135-145); TOTAL CARBON DIOXIDE 28.8 MMOL/L (24-32); TOTAL PROTEIN 7.5 G/DL (6.4-8.2); eGFR 77 ML/MIN
[2022-03-14 17:55] LABS: ETHANOL < 0.010 GM/DL (0.0-0.010)
[2022-03-14 17:57] LABS: URINE AMPHETAMINE SCREEN NEGATIVE (Neg); URINE BARBITUATE SCREEN NEGATIVE (Neg); URINE BENZODIAZEPINES SCREEN NEGATIVE (Neg); URINE CANNABINOID SCREEN NEGATIVE (Neg); URINE COCAINE SCREEN NEGATIVE (Neg); URINE METHADONE SCREEN NEGATIVE (Neg); URINE OPIATE SCREEN NEGATIVE (Neg); URINE PHENCYCLIDINE SCREEN NEGATIVE (Neg)
[2022-03-14] MEDS ORDERED: OLANZAPINE 5 MG TABLET PO PRN (22:00)
[2022-03-14] MEDS ORDERED: fluticasone nasal spray 16GM bottle NS PRN (22:00)
--- NOTE | 2022-03-14 22:21 | NUR ---
Patient is awake and well oriented. No distress. Patient states S/I earlier with a plan to jump from a bridge. In overflow patient denies S/I. Recent command hallucinations, the voices told me to "kill myself." This patient is cooperative and linear. She lives in an assisted living center. Patient is developmentaly delayed. She holds a Kareem Bear. The patient was advised that she is in a safe place. The patient exhibited understanding.
--- NOTE | 2022-03-14 22:48 | NUR ---
Patient is sleeping quietly in a low fowlers positon, she is holding her Kareem Bear. Patient in direct view from the nurses station.
--- NOTE | 2022-03-14 23:34 | NUR ---
Patient remains sleeping quietly. No distress.
--- NOTE | 2022-03-14 23:36 | NUR ---
Patient sleeps quietly, no distress.
--- NOTE | 2022-03-15 03:18 | NUR ---
Patilulút is sleeping quietly on her right side, knees flexed. She has self repositioned.
--- NOTE | 2022-03-15 06:45 | NUR ---
Pt awake and sitting quietly. Cooperative w/ staff. Denies pain. States she is doing ok at this time. Resp WNL.
--- NOTE | 2022-03-15 07:45 | NUR ---
Pt sitting on bed quietly w/ her audrey haney. States she is ok.
[2022-03-15] MEDS ORDERED: fenofibrate 48mg tablet PO SCH (08:00)
[2022-03-15] MEDS ORDERED: FLUoxetine 20mg capsule PO SCH (08:00)
[2022-03-15] MEDS ORDERED: ferrous sulfate 325mg tablet PO SCH (08:00)
[2022-03-15] MEDS ORDERED: cholecalciferol (vitamin D3) 1,000 unit (25mcg) tablet PO SCH (08:00)
[2022-03-15] MEDS ORDERED: divalproex sod 125mg tablet.DR PO SCH (08:00)
[2022-03-15 09:38] VITALS: BP 100/63
--- NOTE | 2022-03-15 11:09 | NUR ---
Pt resting quietly. Resp WNL.
--- NOTE | 2022-03-15 12:51 | NUR ---
PT APPEARS TO BE RESTING QUIETLY IN ROOM ON RIGHT SIDE. PT HAS NO NEEDS AT THIS TIME.
[2022-03-15] MEDS ORDERED: OLANZAPINE 5 MG TABLET PO SCH ×2 (16:00→21:00)
[2022-03-15] MEDS ORDERED: hydrOXYzine 25 MG tablet PO SCH (21:00)
[2022-03-15] MEDS ORDERED: divalproex sod 250mg ER (24-hour) tablet PO SCH (21:00)
[2022-03-15] MEDS ORDERED: montelukast 10mg tablet PO SCH (21:00)
[2022-03-15] MEDS ORDERED: traZODone 50mg tablet PO SCH (21:00)
== END 2022-03-15 13:34 | disposition home or self-care (01) ==
LOC: ER 16:21
DX: R45.851 Suicidal ideations (principal); Z20.822 Contact with and (suspected) exposure to COVID-19; F31.9 Bipolar disorder, unspecified; Z88.2 Allergy status to sulfonamides
CPT/HCPCS: 36415; 80053; 80305; 80320; 81025; 85025; 87811; 99285

== ENCOUNTER 2022-03-15 19:57 | Emergency (ER) | payer MEDICAID ==
[~2022-03-15] VITALS: Ht 152.4 cm; Wt 75.0 kg
[~2022-03-15 19:57] MED LIST changes: -CHOL20004 PO; -DIVA250T15 PO; -FENO48TA10 PO; -FERR324T8 PO; -FLUV50TA24 PO; -OLAN5TAB75 PO; -TOP100T PO
[2022-03-15 20:06] VITALS: BP 136/92
== END 2022-03-15 21:12 | disposition home or self-care (01) ==
LOC: ER 19:58
DX: R62.50 Unspecified lack of expected normal physiological development in childhood (principal); F91.9 Conduct disorder, unspecified; F31.9 Bipolar disorder, unspecified; Z88.2 Allergy status to sulfonamides
CPT/HCPCS: 99283

== ENCOUNTER 2022-04-29 19:40 | Emergency (ER) | payer MEDICAID ==
[~2022-04-29] VITALS: Ht 165.1 cm; Wt 79.5 kg
[~2022-04-29 19:40] MED LIST changes: +MONT-47 PO; -MONT10TA21 PO
[2022-04-29 20:29] LABS: BASOPHILS % (AUTO) 0.3 % (0-1); EOSINOPHILS % (AUTO) 0 % (0-6); HEMATOCRIT 39.5 % (35.0-45.0); HEMOGLOBIN 13.1 g/dl (12.0-16.0); LYMPHOCYTES # (AUTO) 1.4 X10'3 (1.1-4.8); LYMPHOCYTES % (AUTO) 29.9 % (21-51); MEAN CORPUSCULAR HEMOGLOBIN 29.6 PG (27.0-31.0); MEAN CORPUSCULAR HGB CONC 33.1 g/dL (33.0-36.5); MEAN CORPUSCULAR VOLUME 89.2 FL (78-98); MEAN PLATELET VOLUME 8.9 FL (7.4-10.4); MONOCYTES # (AUTO) 0.4 X10'3 (0-0.9); NEUTROPHILS # (AUTO) 2.8 X10'3 (1.8-7.7); NEUTROPHILS % (AUTO) 61.8 % (42-75); PLATELET COUNT 83 X10'3 (140-440); RED BLOOD COUNT 4.43 X10'6 (4.20-5.60); RED CELL DISTRIBUTION WIDTH 13.6 % (11.5-14.5); WHITE BLOOD COUNT 4.6 X10'3 (4.5-11.0)
[2022-04-29 20:50] LABS: ALANINE AMINOTRANSFERASE 42 U/L (12-78); ALBUMIN 3.6 G/DL (3.4-5.0); ALBUMIN/GLOBULIN RATIO 0.9 (1.1-1.5); ALKALINE PHOSPHATASE 121 IU/L (46-116); ANION GAP 9 (8-16); ASPARTATE AMINO TRANSFERASE 23 U/L (10-37); BILIRUBIN,TOTAL 0.5 MG/DL (0.1-1.0); BLOOD UREA NITROGEN 20 MG/DL (7-18); BUN/CREATININE RATIO 21.1 (6.6-38.0); CALCIUM 9.2 MG/DL (8.5-10.1); CHLORIDE 110 MMOL/L (99-107); CREATININE 0.95 MG/DL (0.40-0.90); GLUCOSE 89 MG/DL (70-104); POTASSIUM 3.8 MMOL/L (3.5-5.1); SODIUM 145 MMOL/L (135-145); TOTAL CARBON DIOXIDE 25.8 MMOL/L (24-32); TOTAL PROTEIN 7.5 G/DL (6.4-8.2); eGFR 70 ML/MIN
[2022-04-29 20:56] LABS: ETHANOL < 0.010 GM/DL (0.0-0.010)
[2022-04-29 21:17] VITALS: BP 112/72
[2022-04-29 22:34] LABS: URINE HCG NEGATIVE (NEG)
[2022-04-29 22:35] LABS: CLARITY,URINE SLIGHTLY CLOUDY (Clear); COLOR,URINE YELLOW (Yellow); GLUCOSE, URINE NEGATIVE (Neg); KETONES,URINE NEGATIVE (Neg); LEUKOCYTE ESTERASE ,URINE TRACE (Neg); NITRITES, URINE NEGATIVE (Neg); OCCULT BLOOD,URINE LARGE (Neg); PROTEIN,URINE NEGATIVE (Neg); UROBILINOGEN,URINE 0.2 E.U/dL (0.2-1.0)
[2022-04-29 22:42] LABS: SQUAMOUS EPITHELIAL CELL,UR MANY /LPF (FEW); UA COLLECTION TYPE CLN CATCH MIDSTREAM
[2022-04-29 22:44] LABS: BACTERIA,URINE FEW /HPF (Neg); RBC,URINE 20-50 /HPF (0-2)
[2022-04-29 22:50] LABS: URINE AMPHETAMINE SCREEN NEGATIVE (Neg); URINE BARBITUATE SCREEN NEGATIVE (Neg); URINE BENZODIAZEPINES SCREEN NEGATIVE (Neg); URINE CANNABINOID SCREEN NEGATIVE (Neg); URINE COCAINE SCREEN NEGATIVE (Neg); URINE METHADONE SCREEN NEGATIVE (Neg); URINE OPIATE SCREEN NEGATIVE (Neg); URINE PHENCYCLIDINE SCREEN NEGATIVE (Neg)
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
[2022-04-30] MEDS ORDERED: LORazepam 2 mg/ml vial IM ONE (04:15)
[2022-04-30] MEDS ORDERED: diphenhydrAMINE 50 mg/ml inj IM ONE (04:15)
[2022-04-30] MEDS ORDERED: TOPI50CA5 PO (06:18)
[2022-04-30] MEDS ORDERED: QUET25TA36 PO (06:18)
[2022-04-30] MEDS ORDERED: DIVA500T2 PO ×2 (06:25→19:52)
--- NOTE | 2022-04-30 11:58 | NUR ---
Patient pulling on wires and monitors, I moved the gurney to the middle of the exam room for safety and away from things.
--- NOTE | 2022-04-30 12:32 | NUR ---
PT REFUSED LUNCH TRAY
[2022-04-30] MEDS ORDERED: LORA-269 PO (19:29)
[2022-04-30] MEDS ORDERED: CLON-527 PO (19:52)
[2022-04-30] MEDS ORDERED: PALI9TAB PO (19:52)
== END 2022-04-30 14:58 | disposition home or self-care (01) ==
LOC: ER 19:40
DX: R45.851 Suicidal ideations (principal); Z20.822 Contact with and (suspected) exposure to COVID-19; F31.9 Bipolar disorder, unspecified; Z88.2 Allergy status to sulfonamides; Z79.899 Other long term (current) drug therapy; Z79.1 Long term (current) use of non-steroidal anti-inflammatories (NSAID); Z79.2 Long term (current) use of antibiotics
CPT/HCPCS: 36415; 80053; 80305; 80320; 81001; 81025; 84443; 85025; 87811; 96372; 99285; J1200; J2060

== ENCOUNTER 2022-04-30 18:47 | Emergency (ER) | payer MEDICAID ==
[~2022-04-30] VITALS: Ht 170.2 cm; Wt 100.0 kg
[~2022-04-30 18:47] MED LIST changes: +DIVA500T2 PO; +QUET25TA36 PO; +TOPI50CA5 PO
[2022-04-30 18:56] VITALS: BP 142/95
[2022-04-30] MEDS ORDERED: LORazepam 2 mg/ml vial IM ONE (19:20)
[2022-04-30] MEDS ORDERED: LORA-269 PO (19:29)
--- NOTE | 2022-04-30 19:46 | NUR ---
Pt is from a alf, they have PRNs that they should be using but it appears as though they are not. Educated on what these meds do and how helpful they would be for them and her if they would use them.
[2022-04-30] MEDS ORDERED: PALI9TAB PO (19:52)
[2022-04-30] MEDS ORDERED: CLON-527 PO (19:52)
[2022-04-30] MEDS ORDERED: DIVA500T2 PO (19:52)
== END 2022-04-30 19:53 | disposition home or self-care (01) ==
LOC: ER 18:49
DX: F31.9 Bipolar disorder, unspecified (principal); R45.1 Restlessness and agitation; Z88.2 Allergy status to sulfonamides; Z79.899 Other long term (current) drug therapy
CPT/HCPCS: 96372; 99283; J2060

== ENCOUNTER 2022-04-30 21:55 | Emergency (ER) | payer MEDICAID ==
[~2022-04-30] VITALS: Ht 170.2 cm; Wt 100.0 kg
[~2022-04-30 21:55] MED LIST changes: +CLON-527 PO; +LORA-269 PO; +PALI9TAB PO
--- NOTE | 2022-04-30 22:13 | NUR ---
Kash mailbox is full and he is not answering Ino will try to get ahold of him, told him to call me
--- NOTE | 2022-04-30 23:46 | NUR ---
This patient is completely awake and conversing with us. She states that Luis Daniel Giang took her meds and wanted her to fake an "abdominal thing" when he called for the ambulance. Sherwin notified that Luis Daniel Giang potentially has taken these 12 1 mg lorazepam tablets, as the patient is alert and conversing with us and no signs of taking this type of medication.
--- NOTE | 2022-05-01 00:05 | NUR ---
Note brockkendra in EDM - 05/01/22 at 0028 by FRANCISCO Received patient from ER to bed-26 in [facility]. Gaurded and withdrawn. Voices that she has a plan and reports that she doesn't want to tell us what it is. When asked if she'd attempted in the past states, "OD." When asked with what her reply was, "It doesn't matter." Performed 1:1 assessment. Got patient a few warm blankets and water. Patient resting with eyes closed. Will continue to monitor.
--- NOTE | 2022-05-01 00:12 | NUR ---
Officer called back and he will be coming up to talk to the patient, Lam is here to pick her up. Moved her and him into room 15 awaiting officer.
--- NOTE | 2022-05-01 00:21 | NUR ---
Med bottle was given to the patient, I asked her to open it. She can't figure it out.
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
--- NOTE | 2022-05-01 01:12 | NUR ---
Sherwin notified that the pt just called and that she has a safe place to go to [facility], she just may choose not to go there.
[2022-05-01 01:15] VITALS: BP 136/58
== END 2022-05-01 01:17 | disposition home or self-care (01) ==
LOC: ER 21:56
DX: F31.9 Bipolar disorder, unspecified (principal); Z79.899 Other long term (current) drug therapy; Z88.2 Allergy status to sulfonamides
CPT/HCPCS: 99283

== ENCOUNTER 2022-05-01 19:33 | Emergency (ER) | payer MEDICAID ==
[~2022-05-01] VITALS: Ht 165.1 cm; Wt 90.0 kg
[2022-05-01 19:42] VITALS: BP 134/92
== END 2022-05-02 00:10 | disposition left against medical advice (07) ==
LOC: ER 19:34
DX: F29 Unspecified psychosis not due to a substance or known physiological condition (principal); Z53.21 Procedure and treatment not carried out due to patient leaving prior to being seen by health care provider
CPT/HCPCS: 99281

== ENCOUNTER 2022-05-02 04:52 | Emergency (ER) | payer MEDICAID ==
[~2022-05-02] VITALS: Ht 160 cm; Wt 89.4 kg
[2022-05-02 06:13] VITALS: BP 139/94
== END 2022-05-02 11:16 | disposition home or self-care (01) ==
LOC: ER 04:53
DX: R45.851 Suicidal ideations (principal); F31.9 Bipolar disorder, unspecified; Z88.2 Allergy status to sulfonamides; Z79.899 Other long term (current) drug therapy
CPT/HCPCS: 99281

== ENCOUNTER 2022-06-18 19:12 | Emergency (ER) | payer MEDICAID ==
[~2022-06-18] VITALS: Ht 172.7 cm; Wt 94.4 kg
[~2022-06-18 19:12] MED LIST changes: -DIVA-81 PO; -DIVA125T2 PO; -FLUO-12 PO
[2022-06-18 19:42] VITALS: BP 117/87
[2022-06-18 20:07] LABS: BASOPHILS % (AUTO) 0.4 % (0-1); EOSINOPHILS % (AUTO) 0.1 % (0-6); HEMATOCRIT 39.9 % (35.0-45.0); HEMOGLOBIN 13.2 g/dl (12.0-16.0); LYMPHOCYTES # (AUTO) 1.4 X10'3 (1.1-4.8); MEAN CORPUSCULAR HEMOGLOBIN 29.7 PG (27.0-31.0); MEAN CORPUSCULAR HGB CONC 33.2 g/dL (33.0-36.5); MEAN CORPUSCULAR VOLUME 89.5 FL (78-98); MEAN PLATELET VOLUME 8.8 FL (7.4-10.4); MONOCYTES # (AUTO) 0.3 X10'3 (0-0.9); NEUTROPHILS # (AUTO) 2.2 X10'3 (1.8-7.7); NEUTROPHILS % (AUTO) 56.5 % (42-75); PLATELET COUNT 79 X10'3 (140-440); RED BLOOD COUNT 4.46 X10'6 (4.20-5.60); RED CELL DISTRIBUTION WIDTH 13.6 % (11.5-14.5); WHITE BLOOD COUNT 3.9 X10'3 (4.5-11.0)
[2022-06-18 20:25] LABS: ALANINE AMINOTRANSFERASE 56 U/L (12-78); ALBUMIN 3.6 G/DL (3.4-5.0); ALKALINE PHOSPHATASE 116 IU/L (46-116); ANION GAP 12 (8-16); ASPARTATE AMINO TRANSFERASE 28 U/L (10-37); BILIRUBIN,TOTAL 0.4 MG/DL (0.1-1.0); BLOOD UREA NITROGEN 16 MG/DL (7-18); CHLORIDE 108 MMOL/L (99-107); CREATININE 0.84 MG/DL (0.40-0.90); GLUCOSE 104 MG/DL (70-104); LIPASE 194 U/L (73-393); SODIUM 145 MMOL/L (135-145); TOTAL CARBON DIOXIDE 25.2 MMOL/L (24-32); TOTAL PROTEIN 7.3 G/DL (6.4-8.2); eGFR 80 ML/MIN
== END 2022-06-18 20:53 | disposition home or self-care (01) ==
LOC: ER 19:12
DX: R10.30 Lower abdominal pain, unspecified (principal); R07.9 Chest pain, unspecified; F31.9 Bipolar disorder, unspecified; Z88.2 Allergy status to sulfonamides; Z79.899 Other long term (current) drug therapy; Z79.1 Long term (current) use of non-steroidal anti-inflammatories (NSAID); Z79.2 Long term (current) use of antibiotics
CPT/HCPCS: 80053; 83690; 85025; 99283

== ENCOUNTER 2022-07-09 03:58 | Emergency (ER) | payer MEDICAID ==
[~2022-07-09] VITALS: Ht 170.2 cm; Wt 77.3 kg
[2022-07-09] MEDS ORDERED: METR-159 PO (04:20)
[2022-07-09] MEDS ORDERED: GUAI600T45 PO (04:20)
[2022-07-09] MEDS ORDERED: ARIP10TA14 PO (04:20)
[2022-07-09] MEDS ORDERED: QUET-1 PO (04:20)
[2022-07-09] MEDS ORDERED: QUET400T PO (04:20)
[2022-07-09] MEDS ORDERED: QUET25TA PO (04:20)
[2022-07-09] MEDS ORDERED: HYDR-3686 PO ×2 (04:20)
[2022-07-09] MEDS ORDERED: TOPI25TA15 PO (04:20)
[2022-07-09 04:29] VITALS: BP 109/78
[2022-07-09 05:32] LABS: CLARITY,URINE SLIGHTLY CLOUDY (Clear); COLOR,URINE YELLOW (Yellow); GLUCOSE, URINE NEGATIVE (Neg); KETONES,URINE NEGATIVE (Neg); LEUKOCYTE ESTERASE ,URINE SMALL (Neg); NITRITES, URINE NEGATIVE (Neg); OCCULT BLOOD,URINE LARGE (Neg); PROTEIN,URINE TRACE mg/dl (Neg); UROBILINOGEN,URINE 0.2 E.U/dL (0.2-1.0)
[2022-07-09 05:41] LABS: UA COLLECTION TYPE CLN CATCH MIDSTREAM
[2022-07-09 05:43] LABS: MUCUS STRANDS MODERATE /LPF (Neg); SQUAMOUS EPITHELIAL CELL,UR MANY /LPF (FEW); WBC,URINE 30-50 /HPF (0-4)
[2022-07-09 05:44] LABS: BACTERIA,URINE 3+ /HPF (Neg); CAL OXALATE CRYSTALS FEW /HPF (NEGATIVE); URINE AMPHETAMINE SCREEN NEGATIVE (Neg); URINE BARBITUATE SCREEN NEGATIVE (Neg); URINE BENZODIAZEPINES SCREEN NEGATIVE (Neg); URINE CANNABINOID SCREEN NEGATIVE (Neg); URINE COCAINE SCREEN NEGATIVE (Neg); URINE METHADONE SCREEN NEGATIVE (Neg); URINE OPIATE SCREEN NEGATIVE (Neg); URINE PHENCYCLIDINE SCREEN NEGATIVE (Neg)
--- NOTE | 2022-07-09 06:40 | NUR ---
Patient come to the ER overflow from ER. Patient alert and sleepy. Patient laying in bed holding her audrey bear.
--- NOTE | 2022-07-09 06:50 | NUR ---
Patient awakened and moved to overflow
[2022-07-09 07:58] LABS: BASOPHILS % (AUTO) 0.2 % (0-1); EOSINOPHILS % (AUTO) 0.1 % (0-6); HEMATOCRIT 38.1 % (35.0-45.0); HEMOGLOBIN 12.9 g/dl (12.0-16.0); LYMPHOCYTES # (AUTO) 1.6 X10'3 (1.1-4.8); LYMPHOCYTES % (AUTO) 35.4 % (21-51); MEAN CORPUSCULAR HEMOGLOBIN 29.9 PG (27.0-31.0); MEAN CORPUSCULAR HGB CONC 33.8 g/dL (33.0-36.5); MEAN CORPUSCULAR VOLUME 88.6 FL (78-98); MEAN PLATELET VOLUME 9.2 FL (7.4-10.4); MONOCYTES # (AUTO) 0.3 X10'3 (0-0.9); MONOCYTES % (AUTO) 6.9 % (2-12); NEUTROPHILS # (AUTO) 2.5 X10'3 (1.8-7.7); NEUTROPHILS % (AUTO) 57.4 % (42-75); PLATELET COUNT 77 X10'3 (140-440); RED CELL DISTRIBUTION WIDTH 13.5 % (11.5-14.5); WHITE BLOOD COUNT 4.4 X10'3 (4.5-11.0)
[2022-07-09 08:11] LABS: ALANINE AMINOTRANSFERASE 41 U/L (12-78); ALBUMIN 3.6 G/DL (3.4-5.0); ALBUMIN/GLOBULIN RATIO 1.1 (1.1-1.5); ALKALINE PHOSPHATASE 105 IU/L (46-116); ANION GAP 10 (8-16); ASPARTATE AMINO TRANSFERASE 24 U/L (10-37); BILIRUBIN,TOTAL 0.5 MG/DL (0.1-1.0); BLOOD UREA NITROGEN 24 MG/DL (7-18); BUN/CREATININE RATIO 28.2 (10.0-20.0); CALCIUM 9.3 MG/DL (8.5-10.1); CHLORIDE 108 MMOL/L (99-107); CREATININE 0.85 MG/DL (0.40-0.90); GLUCOSE 95 MG/DL (70-104); POTASSIUM 3.4 MMOL/L (3.5-5.1); SODIUM 144 MMOL/L (135-145); TOTAL CARBON DIOXIDE 26.3 MMOL/L (24-32); TOTAL PROTEIN 6.9 G/DL (6.4-8.2); eGFR 79 ML/MIN
[2022-07-09 08:30] LABS: ETHANOL < 0.010 GM/DL (0.0-0.010)
[2022-07-09] MEDS ORDERED: POTASSIUM BICARB 20meq eff tab 20 MEQ TABLET.EFF PO ONE (08:40)
--- NOTE | 2022-07-09 08:40 | NUR ---
Patient laying in bed asleep, holding her audrey bear. No complaints at this time.
--- NOTE | 2022-07-09 09:04 | NUR ---
PACKET FAXED TO [facility]
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
[2022-07-09] MEDS ORDERED: QUEtiapine 25mg tablet PO PRN (11:00)
[2022-07-09] MEDS ORDERED: hydrOXYzine 25 MG tablet PO PRN (11:00)
[2022-07-09] MEDS ORDERED: ARIPIPRAZOLE 10 MG TABLET PO SCH (12:00)
--- NOTE | 2022-07-09 12:59 | NUR ---
Patient sitting up in bed eating lunch. Patient is pleasent and denies any SI or A/V hallucinations.
[2022-07-09] MEDS ORDERED: quetiapine 100mg tablet PO SCH ×3 (14:00→21:00)
--- NOTE | 2022-07-09 14:25 | NUR ---
patient is resting peacefully in bed. Patient is being discharged today back to her [facility] at 1500.
[2022-07-09] MEDS ORDERED: metroNIDAZOLE 500mg tablet PO SCH (20:00)
[2022-07-09] MEDS ORDERED: divalproex sodium 500mg tablet.DR PO SCH (20:00)
[2022-07-09] MEDS ORDERED: traZODone 50mg tablet PO SCH (21:00)
[2022-07-09] MEDS ORDERED: topiramate 25mg tablet PO SCH (21:00)
[2022-07-09] MEDS ORDERED: hydrOXYzine 25 MG tablet PO SCH (21:00)
[2022-07-09] MEDS ORDERED: montelukast 10mg tablet PO SCH (21:00)
[2022-07-10] MEDS ORDERED: PALIPERIDONE 3 MG TAB.ER.24 PO SCH (08:00)
== END 2022-07-09 15:15 | disposition home or self-care (01) ==
LOC: ER 03:58
DX: R45.851 Suicidal ideations (principal); F31.9 Bipolar disorder, unspecified; Z88.2 Allergy status to sulfonamides; Z79.899 Other long term (current) drug therapy
CPT/HCPCS: 36415; 70486; 80053; 80305; 80320; 81001; 84443; 85025; 99285

== ENCOUNTER 2022-07-16 20:46 | Emergency (ER) | payer MEDICAID ==
[~2022-07-16] VITALS: Ht 167.6 cm; Wt 109.1 kg
[~2022-07-16 20:46] MED LIST changes: +ARIP10TA14 PO; -CLON-527 PO; +GUAI600T45 PO; +HYDR-3686 PO; -HYDR50CA PO; -LORA-269 PO; +METR-159 PO; -OLAN15TA3 PO; -OLAN5TAB3 PO; +QUET-1 PO; +QUET25TA PO; -QUET25TA36 PO; +QUET400T PO; +TOPI25TA15 PO; -TOPI50CA5 PO
[2022-07-16 21:35] LABS: BASOPHILS % (AUTO) 0.3 % (0-1); EOSINOPHILS % (AUTO) 0 % (0-6); HEMATOCRIT 38.6 % (35.0-45.0); HEMOGLOBIN 13.2 g/dl (12.0-16.0); LYMPHOCYTES # (AUTO) 1.7 X10'3 (1.1-4.8); LYMPHOCYTES % (AUTO) 36.9 % (21-51); MEAN CORPUSCULAR HEMOGLOBIN 30.1 PG (27.0-31.0); MEAN CORPUSCULAR HGB CONC 34.3 g/dL (33.0-36.5); MEAN CORPUSCULAR VOLUME 87.7 FL (78-98); MEAN PLATELET VOLUME 8.9 FL (7.4-10.4); MONOCYTES # (AUTO) 0.3 X10'3 (0-0.9); MONOCYTES % (AUTO) 6.2 % (2-12); NEUTROPHILS # (AUTO) 2.6 X10'3 (1.8-7.7); NEUTROPHILS % (AUTO) 56.6 % (42-75); PLATELET COUNT 91 X10'3 (140-440); RED CELL DISTRIBUTION WIDTH 13.5 % (11.5-14.5); WHITE BLOOD COUNT 4.7 X10'3 (4.5-11.0)
[2022-07-16 21:35] LABS: URINE HCG NEGATIVE (NEG)
[2022-07-16 21:44] LABS: ALANINE AMINOTRANSFERASE 46 U/L (12-78); ALBUMIN 3.8 G/DL (3.4-5.0); ALBUMIN/GLOBULIN RATIO 1.1 (1.1-1.5); ALKALINE PHOSPHATASE 111 IU/L (46-116); ANION GAP 9 (8-16); ASPARTATE AMINO TRANSFERASE 24 U/L (10-37); BILIRUBIN,TOTAL 0.4 MG/DL (0.1-1.0); BLOOD UREA NITROGEN 16 MG/DL (7-18); BUN/CREATININE RATIO 17.2 (10.0-20.0); CALCIUM 8.9 MG/DL (8.5-10.1); CHLORIDE 106 MMOL/L (99-107); CREATININE 0.93 MG/DL (0.40-0.90); ETHANOL < 0.010 GM/DL (0.0-0.010); GLUCOSE 100 MG/DL (70-104); POTASSIUM 3.7 MMOL/L (3.5-5.1); SODIUM 141 MMOL/L (135-145); TOTAL CARBON DIOXIDE 26.4 MMOL/L (24-32); TOTAL PROTEIN 7.2 G/DL (6.4-8.2); eGFR 71 ML/MIN
[2022-07-16 21:50] LABS: URINE AMPHETAMINE SCREEN NEGATIVE (Neg); URINE BARBITUATE SCREEN NEGATIVE (Neg); URINE BENZODIAZEPINES SCREEN NEGATIVE (Neg); URINE CANNABINOID SCREEN NEGATIVE (Neg); URINE COCAINE SCREEN NEGATIVE (Neg); URINE METHADONE SCREEN NEGATIVE (Neg); URINE OPIATE SCREEN NEGATIVE (Neg); URINE PHENCYCLIDINE SCREEN NEGATIVE (Neg)
--- NOTE | 2022-07-16 22:32 | NUR ---
The patient to bed 21 in the ER overflow. She was very cooperative with staff requests and the intake of information. She stated that she has been feeling suicidal and stated that she is unsure if she can be safe if she goes home. She also stated that "If that dog is there I'm going to kill it"
[2022-07-16 22:52] LABS: VALPROATE 10 UG/ML (50-100)
[2022-07-16 22:54] LABS: ACETAMINOPHEN < 2.0 UG/ML (10-30)
[2022-07-16] MEDS ORDERED: NORETHINDRONE PO (23:02)
[2022-07-16] MEDS ORDERED: HYDR-3686 PO ×2 (23:02)
[2022-07-16] MEDS ORDERED: IBUP-1985 PO (23:02)
[2022-07-16] MEDS ORDERED: PALI9TAB PO (23:02)
[2022-07-16] MEDS ORDERED: TOP100T PO (23:02)
[2022-07-16] MEDS ORDERED: QUET-1 PO (23:02)
[2022-07-16] MEDS ORDERED: DIVA500T2 PO (23:02)
[2022-07-16] MEDS ORDERED: QUET25TA PO ×2 (23:02)
[2022-07-16] MEDS ORDERED: MONT-47 PO (23:02)
[2022-07-16] MEDS ORDERED: vitamin d (23:02)
[2022-07-16] MEDS ORDERED: CLINDAMYCIN 1% TOP (23:02)
[2022-07-16] MEDS ORDERED: ARIP5TAB14 PO (23:02)
--- NOTE | 2022-07-16 23:39 | NUR ---
The patient appears to be sleeping
--- NOTE | 2022-07-17 01:01 | NUR ---
The patient appears to be sleeping
--- NOTE | 2022-07-17 03:05 | NUR ---
The patient appears to be sleeping
--- NOTE | 2022-07-17 03:56 | NUR ---
PACKET SENT TO [facility]
--- NOTE | 2022-07-17 04:26 | NUR ---
Completed med rec given to to review
--- NOTE | 2022-07-17 05:00 | NUR ---
The patient appears to be sleeping
[2022-07-17 05:48] VITALS: BP 108/64
--- NOTE | 2022-07-17 06:30 | NUR ---
Pt is awake lying quietly in bed.
--- NOTE | 2022-07-17 06:45 | NUR ---
Pt is snapping a bracelet she is wearing loudly and repetitively in an obvious attempt to annoy nursing staff. Asked pt not to do so.
--- NOTE | 2022-07-17 06:55 | NUR ---
Pt continued to snap her bracelet. Tech asked for the bracelet. Pt would not give it to her but threw it accross the room. Pt has not received any medications since arrival. Per noc RN report, ER MD unwilling to sign the med rec last night.
--- NOTE | 2022-07-17 06:58 | NUR ---
Pt is now picking and snapping her ID bracelet and hitting the siderail.
[2022-07-17] MEDS ORDERED: hydrOXYzine 25 MG tablet PO PRN (07:30)
[2022-07-17] MEDS ORDERED: QUEtiapine 25mg tablet PO PRN (07:30)
[2022-07-17] MEDS ORDERED: haloperidol lactate 5mg/ml inj IM ONE (07:40)
[2022-07-17] MEDS ORDERED: LORazepam 2 mg/ml vial IM ONE (07:40)
[2022-07-17] MEDS ORDERED: diphenhydrAMINE 50 mg/ml inj IM ONE (07:40)
[2022-07-17] MEDS ORDERED: haloperidol lactate 5mg/ml inj ONE (07:45)
[2022-07-17] MEDS ORDERED: diphenhydrAMINE 50 mg/ml inj ONE (07:45)
--- NOTE | 2022-07-17 07:56 | NUR ---
Pt was scratching on the siderail with an object, determined that it was a metal object. Pt also had removed and shoved her allergy wristband into her mouth and would not spit it out. Security was called. Pt spit the wristband out of her mouth. Determined that pt had been scratching the siderail with a large post earring, she was holding 2 of them in her hand. Pt would not follow direction, she did not respond to verbal de-escalation. Confiscated earrings and audrey bear, audrey bear was searched for contraband. Pt swung and kicked at nursing staff and security. Orders obtained for IM meds. Pt was given Haldol 5 mg, Ativan 2 mg, and Benadryl 50 mg IM in her right gluteal at 0753. Pt is now resting quietly in bed on her left side.
[2022-07-17] MEDS ORDERED: aripiprazole 5mg tablet PO SCH (08:00)
--- NOTE | 2022-07-17 08:18 | NUR ---
Pt removed her scrub top and threw it on the floor.
[2022-07-17] MEDS ORDERED: TOP100T PO (08:28)
[2022-07-17] MEDS ORDERED: FERR325T28 PO (08:28)
[2022-07-17] MEDS ORDERED: IBUP-1985 PO (08:28)
[2022-07-17] MEDS ORDERED: FENO48TA15 PO (08:28)
[2022-07-17] MEDS ORDERED: NORETHINDRONE PO (08:28)
[2022-07-17] MEDS ORDERED: TRAZ-251 PO (08:28)
[2022-07-17] MEDS ORDERED: FLUT16SP26 BOTHNARES (08:28)
[2022-07-17] MEDS ORDERED: CLINDAMYCIN 1% TOP (08:28)
[2022-07-17] MEDS ORDERED: CHOL2000 PO (08:28)
--- NOTE | 2022-07-17 09:07 | NUR ---
Pt up to use the bathroom.
[2022-07-17] MEDS: QUEtiapine 25mg tablet PO SCH ×2 (09:13→12:30)
--- NOTE | 2022-07-17 10:45 | NUR ---
Pt is lying in bed on her left side snoring.
--- NOTE | 2022-07-17 12:10 | NUR ---
Pt is awake, lying quietly on her back in bed. So far, she is not interested in her lunch tray.
--- NOTE | 2022-07-17 13:14 | NUR ---
Attempted to administer pt her seroquel. Pt refused to take it. Explained to pt she must wear a shirt. PT stated understanding
--- NOTE | 2022-07-17 14:05 | NUR ---
Pt is being discharged back to her longterm. No staff available to come pick her up. [employer] was called, they won't have a bulk truck driver for 1 1/2 to 2 hours.
--- NOTE | 2022-07-17 15:05 | NUR ---
Pt discharged, picked up by [facility] to take back to her longterm. Pt ambulated off the unit accompanied by security.
[2022-07-17] MEDS ORDERED: topiramate 100mg tablet PO SCH (21:00)
[2022-07-17] MEDS ORDERED: montelukast 10mg tablet PO SCH (21:00)
[2022-07-17] MEDS ORDERED: hydrOXYzine 25 MG tablet PO SCH (21:00)
[2022-07-17] MEDS ORDERED: PALIPERIDONE 3 MG TAB.ER.24 PO SCH (21:00)
[2022-07-17] MEDS ORDERED: divalproex sodium 500mg tablet.DR PO SCH (21:00)
[2022-07-17] MEDS ORDERED: quetiapine 100mg tablet PO SCH (21:00)
[2022-07-17] MEDS ORDERED: traZODone 50mg tablet PO SCH (21:00)
[2022-07-18] MEDS ORDERED: NORETHINDRONE PO SCH (08:00)
== END 2022-07-17 15:05 | disposition home or self-care (01) ==
LOC: ER 20:46
DX: R45.851 Suicidal ideations (principal); Z20.822 Contact with and (suspected) exposure to COVID-19; F31.9 Bipolar disorder, unspecified; Z88.2 Allergy status to sulfonamides; Z79.899 Other long term (current) drug therapy; Z79.1 Long term (current) use of non-steroidal anti-inflammatories (NSAID); Z79.2 Long term (current) use of antibiotics
CPT/HCPCS: 36415; 80053; 80164; 80305; 80320; 80329; 81025; 85025; 87811; 96372; 99285; J1200; J1630; J2060

== ENCOUNTER 2022-07-31 09:28 | Emergency (ER) | payer MEDICAID ==
[~2022-07-31] VITALS: Ht 165.1 cm; Wt 92.7 kg
[~2022-07-31 09:28] MED LIST changes: -ARIP10TA14 PO; +ARIP5TAB14 PO; +CLINDAMYCIN 1% TOP; -GUAI600T45 PO; +IBUP-1985 PO; -METR-159 PO; +NORETHINDRONE PO; -QUET400T PO; +TOP100T PO; -TOPI25TA15 PO
[2022-07-31 10:16] VITALS: BP 116/82
--- NOTE | 2022-07-31 13:12 | NUR ---
PRESENT FOR RECTAL EXAM WITH GEMMA CHOI.
[2022-07-31] MEDS ORDERED: DOCU-148 PO (13:16)
[2022-07-31] MEDS ORDERED: PROCHC RC ×2 (13:16)
[2022-08-01] MEDS ORDERED: DOCU-148 PO ×2 (20:40)
[2022-08-01] MEDS ORDERED: PHEN1SUP96 PR ×2 (20:40)
== END 2022-07-31 13:23 | disposition home or self-care (01) ==
LOC: ER 09:29
DX: K64.9 Unspecified hemorrhoids (principal); K59.00 Constipation, unspecified; F31.9 Bipolar disorder, unspecified; Z88.2 Allergy status to sulfonamides; Z79.899 Other long term (current) drug therapy
CPT/HCPCS: 99283

== ENCOUNTER 2022-08-01 19:15 | Emergency (ER) | payer MEDICAID ==
[~2022-08-01] VITALS: Ht 170.2 cm; Wt 91.4 kg
[~2022-08-01 19:15] MED LIST changes: +DOCU-148 PO; +PROCHC RC
[2022-08-01 19:42] VITALS: BP 131/89
[2022-08-01] MEDS ORDERED: hydrocort. acetate/pramoxine 10gm bottle RC STA (20:21)
[2022-08-01] MEDS ORDERED: DOCU-148 PO ×2 (20:40)
[2022-08-01] MEDS ORDERED: PHEN1SUP96 PR ×2 (20:40)
--- NOTE | 2022-08-01 20:56 | NUR ---
SPOKE WITH COMMERCIAL FRONT LOAD OPERATOR REGARDING PT DC.
--- NOTE | 2022-08-01 20:58 | NUR ---
[facility] [employer] CALLED FOR PT. EST TIME 30 MIN.
== END 2022-08-01 21:10 | disposition home or self-care (01) ==
LOC: ER 19:16
DX: K64.9 Unspecified hemorrhoids (principal); F91.9 Conduct disorder, unspecified; F31.9 Bipolar disorder, unspecified; Z88.2 Allergy status to sulfonamides
CPT/HCPCS: 99283

== ENCOUNTER 2022-08-02 02:31 | Emergency (ER) | payer MEDICAID ==
[~2022-08-02] VITALS: Ht 165.1 cm; Wt 100.0 kg
[~2022-08-02 02:31] MED LIST changes: +PHEN1SUP96 PR
--- NOTE | 2022-08-02 03:29 | NUR ---
she refuses to talk, wouldn't put on the wrist band. She was swabbed for covid. Than I got the wrist band on...than she pulled it off. Than she got a pen. Wouldn't lay it down, security called. They got the pen.
--- NOTE | 2022-08-02 05:11 | NUR ---
Patient brought over from the main ER, patient still has labs and UA to be done, there is a 5150 inthe chart written by REY, per main ER 5150 ws faxed to [facility]
--- NOTE | 2022-08-02 05:14 | NUR ---
Patient states she is here because of here behaviors in the day program. Miya presents with a mowhawk hair style. Patient states she eats regular diet, tech Mariia faxed for a meal try. Personal property were clothes only and were inventoried by [employer]. Patient laid down and was oriented to the over flow area. Patient is familiar to this hospital.
--- NOTE | 2022-08-02 06:04 | NUR ---
Patient is aware that she needs to be seen by the MD for orders and she still needs to do labs. Miya states "I don't want my labs done."
--- NOTE | 2022-08-02 07:31 | NUR ---
Patient resting comfortably in bed this morning. No requests made. No signs of distress. Will continue to monitor.
[2022-08-02 07:38] LABS: BASOPHILS % (AUTO) 0.3 % (0-1); EOSINOPHILS % (AUTO) 0 % (0-6); HEMOGLOBIN 12.7 g/dl (12.0-16.0); LYMPHOCYTES # (AUTO) 1.9 X10'3 (1.1-4.8); LYMPHOCYTES % (AUTO) 40.6 % (21-51); MEAN CORPUSCULAR HEMOGLOBIN 29.6 PG (27.0-31.0); MEAN CORPUSCULAR HGB CONC 33.3 g/dL (33.0-36.5); MEAN CORPUSCULAR VOLUME 88.9 FL (78-98); MEAN PLATELET VOLUME 8.9 FL (7.4-10.4); MONOCYTES # (AUTO) 0.3 X10'3 (0-0.9); MONOCYTES % (AUTO) 7.1 % (2-12); NEUTROPHILS # (AUTO) 2.5 X10'3 (1.8-7.7); PLATELET COUNT 84 X10'3 (140-440); RED BLOOD COUNT 4.28 X10'6 (4.20-5.60); RED CELL DISTRIBUTION WIDTH 13.5 % (11.5-14.5); WHITE BLOOD COUNT 4.8 X10'3 (4.5-11.0)
[2022-08-02 07:53] LABS: ALANINE AMINOTRANSFERASE 68 U/L (12-78); ALBUMIN 3.4 G/DL (3.4-5.0); ALBUMIN/GLOBULIN RATIO 0.9 (1.1-1.5); ALKALINE PHOSPHATASE 114 IU/L (46-116); ANION GAP 11 (8-16); ASPARTATE AMINO TRANSFERASE 25 U/L (10-37); BILIRUBIN,TOTAL 0.6 MG/DL (0.1-1.0); BLOOD UREA NITROGEN 17 MG/DL (7-18); BUN/CREATININE RATIO 19.1 (10.0-20.0); CHLORIDE 107 MMOL/L (99-107); CREATININE 0.89 MG/DL (0.40-0.90); ETHANOL < 0.010 GM/DL (0.0-0.010); GLUCOSE 94 MG/DL (70-104); POTASSIUM 3.9 MMOL/L (3.5-5.1); SODIUM 145 MMOL/L (135-145); TOTAL CARBON DIOXIDE 27.4 MMOL/L (24-32); TOTAL PROTEIN 7.1 G/DL (6.4-8.2); eGFR 75 ML/MIN
[2022-08-02 07:55] LABS: ACETAMINOPHEN < 2.0 UG/ML (10-30)
--- NOTE | 2022-08-02 09:46 | NUR ---
Patient resting in bed - up to bathroom ind.
[2022-08-02 10:12] LABS: URINE HCG NEGATIVE (NEG)
[2022-08-02 10:34] LABS: CLARITY,URINE SLIGHTLY CLOUDY (Clear); COLOR,URINE YELLOW (Yellow); GLUCOSE, URINE NEGATIVE (Neg); KETONES,URINE NEGATIVE (Neg); LEUKOCYTE ESTERASE ,URINE TRACE (Neg); NITRITES, URINE NEGATIVE (Neg); OCCULT BLOOD,URINE LARGE (Neg); PROTEIN,URINE TRACE mg/dl (Neg); UROBILINOGEN,URINE 0.2 E.U/dL (0.2-1.0)
[2022-08-02 10:37] LABS: URINE AMPHETAMINE SCREEN NEGATIVE (Neg); URINE BARBITUATE SCREEN NEGATIVE (Neg); URINE BENZODIAZEPINES SCREEN NEGATIVE (Neg); URINE CANNABINOID SCREEN NEGATIVE (Neg); URINE COCAINE SCREEN NEGATIVE (Neg); URINE METHADONE SCREEN NEGATIVE (Neg); URINE OPIATE SCREEN NEGATIVE (Neg); URINE PHENCYCLIDINE SCREEN NEGATIVE (Neg)
[2022-08-02 10:43] LABS: UA COLLECTION TYPE CLN CATCH MIDSTREAM
[2022-08-02 10:45] LABS: BACTERIA,URINE FEW /HPF (Neg); MUCUS STRANDS FEW /LPF (Neg); SQUAMOUS EPITHELIAL CELL,UR MANY /LPF (FEW)
[2022-08-02 11:22] VITALS: BP 118/80
--- NOTE | 2022-08-02 11:25 | NUR ---
Patient sleeping in bed, RR 18, no signs of distress.
--- NOTE | 2022-08-02 13:52 | NUR ---
Amina stiles in ED - 08/02/22 at 1441 by [email or web address] Patient ate >60% of lunch. Asking if she can use telephone to call friend. RR 20.
--- NOTE | 2022-08-02 13:59 | NUR ---
Pt sitting up on side of bed for noon meal. Walked over to bathroom ind.
--- NOTE | 2022-08-02 14:41 | NUR ---
Patient interviewed by commercial underwriter and staff for inspection and placement prospects.
--- NOTE | 2022-08-02 16:30 | NUR ---
Caregiver arrived to hospital appx 30 minutes ago - unable to wait for MD D/C paperwork any longer. Patient sent home with caregiver - staff to fax over discharge paperwork once complete. Patient left with caregiver, and all her own belongings back to her facility she was staying in prior to overnight stay here. Ambulated ind.
== END 2022-08-02 17:14 | disposition still patient (30) ==
LOC: ER 02:31
DX: R45.851 Suicidal ideations (principal); Z20.822 Contact with and (suspected) exposure to COVID-19; F31.9 Bipolar disorder, unspecified; Z88.2 Allergy status to sulfonamides; Z79.899 Other long term (current) drug therapy
CPT/HCPCS: 80053; 80305; 80320; 80329; 81001; 81025; 85025; 87811; 99285

== ENCOUNTER 2022-08-09 22:02 | Emergency (ER) | payer MEDICAID ==
[~2022-08-09] VITALS: Ht 162.6 cm; Wt 89.0 kg
[~2022-08-09 22:02] MED LIST changes: -CLINDAMYCIN 1% TOP; -PHEN1SUP96 PR; -PROCHC RC; -QUET-1 PO
[2022-08-09 22:52] LABS: URINE HCG NEGATIVE (NEG)
[2022-08-09 23:03] LABS: URINE AMPHETAMINE SCREEN NEGATIVE (Neg); URINE BARBITUATE SCREEN NEGATIVE (Neg); URINE BENZODIAZEPINES SCREEN NEGATIVE (Neg); URINE CANNABINOID SCREEN NEGATIVE (Neg); URINE COCAINE SCREEN NEGATIVE (Neg); URINE METHADONE SCREEN NEGATIVE (Neg); URINE OPIATE SCREEN NEGATIVE (Neg); URINE PHENCYCLIDINE SCREEN NEGATIVE (Neg)
[2022-08-09 23:37] LABS: ALANINE AMINOTRANSFERASE 54 U/L (12-78); ALBUMIN 3.6 G/DL (3.4-5.0); ALKALINE PHOSPHATASE 112 IU/L (46-116); ANION GAP 12 (8-16); ASPARTATE AMINO TRANSFERASE 19 U/L (10-37); BILIRUBIN,TOTAL 0.6 MG/DL (0.1-1.0); BLOOD UREA NITROGEN 25 MG/DL (7-18); BUN/CREATININE RATIO 23.4 (10.0-20.0); CALCIUM 9.4 MG/DL (8.5-10.1); CHLORIDE 107 MMOL/L (99-107); CREATININE 1.07 MG/DL (0.40-0.90); GLUCOSE 167 MG/DL (70-104); POTASSIUM 3.5 MMOL/L (3.5-5.1); SODIUM 146 MMOL/L (135-145); TOTAL CARBON DIOXIDE 26.8 MMOL/L (24-32); TOTAL PROTEIN 7.2 G/DL (6.4-8.2); eGFR 61 ML/MIN
[2022-08-09 23:38] LABS: ETHANOL < 0.010 GM/DL (0.0-0.010)
[2022-08-10 01:25] LABS: BASOPHILS % (AUTO) 0.3 % (0-1); EOSINOPHILS % (AUTO) 0.1 % (0-6); HEMATOCRIT 39.6 % (35.0-45.0); HEMOGLOBIN 13.4 g/dl (12.0-16.0); LYMPHOCYTES # (AUTO) 1.7 X10'3 (1.1-4.8); LYMPHOCYTES % (AUTO) 34.7 % (21-51); MEAN CORPUSCULAR HEMOGLOBIN 29.7 PG (27.0-31.0); MEAN CORPUSCULAR HGB CONC 33.8 g/dL (33.0-36.5); MEAN CORPUSCULAR VOLUME 88.1 FL (78-98); MEAN PLATELET VOLUME 9.2 FL (7.4-10.4); MONOCYTES # (AUTO) 0.2 X10'3 (0-0.9); MONOCYTES % (AUTO) 4.8 % (2-12); NEUTROPHILS % (AUTO) 60.1 % (42-75); PLATELET COUNT 91 X10'3 (140-440); RED CELL DISTRIBUTION WIDTH 13.8 % (11.5-14.5)
[2022-08-10] MEDS ORDERED: hydrOXYzine 25 MG tablet PO PRN (04:35)
[2022-08-10] MEDS ORDERED: QUEtiapine 25mg tablet PO PRN (04:35)
[2022-08-10] MEDS ORDERED: ibuprofen 200mg tablet PO PRN (04:35)
--- NOTE | 2022-08-10 06:45 | NUR ---
Pt. awoken and transferred to bed 24 in ER OF. Pt. is cooperative and in no apparent distress.
[2022-08-10] MEDS ORDERED: QUEtiapine 25mg tablet PO SCH (07:30)
[2022-08-10] MEDS ORDERED: fluticasone nasal spray 16GM bottle NS SCH (08:00)
[2022-08-10] MEDS ORDERED: docusate sod 100mg capsule PO SCH (08:00)
[2022-08-10] MEDS ORDERED: cholecalciferol (vitamin D3) 1,000 unit (25mcg) tablet PO SCH (08:00)
[2022-08-10] MEDS ORDERED: aripiprazole 5mg tablet PO SCH (08:00)
[2022-08-10] MEDS ORDERED: fenofibrate 48mg tablet PO SCH (08:00)
[2022-08-10] MEDS ORDERED: ferrous sulfate 325mg tablet PO SCH (08:00)
[2022-08-10 08:02] LABS: CLARITY,URINE CLOUDY (Clear); COLOR,URINE YELLOW (Yellow); GLUCOSE, URINE NEGATIVE (Neg); KETONES,URINE NEGATIVE (Neg); LEUKOCYTE ESTERASE ,URINE SMALL (Neg); NITRITES, URINE NEGATIVE (Neg); OCCULT BLOOD,URINE LARGE (Neg); PH,URINE 6.5 (4.8-8.0); PROTEIN,URINE TRACE mg/dl (Neg); UROBILINOGEN,URINE 0.2 E.U/dL (0.2-1.0)
[2022-08-10 08:06] LABS: UA COLLECTION TYPE VOIDED
[2022-08-10 08:15] LABS: MUCUS STRANDS FEW /LPF (Neg); SQUAMOUS EPITHELIAL CELL,UR MANY /LPF (FEW)
[2022-08-10 08:16] LABS: CAL OXALATE CRYSTALS 3+ /HPF (NEGATIVE)
[2022-08-10 08:18] LABS: BACTERIA,URINE 1+ /HPF (Neg)
--- NOTE | 2022-08-10 08:30 | NUR ---
Pt. awake in bed resting in supine position. Pt. in no apparent distress.
--- NOTE | 2022-08-10 10:30 | NUR ---
Pt. awake and resting in bed in supine position. Pt. informed by social scientist that she will be discharged back to her alf [facility] and will have to pay for a taxi there. Pt. is in agreement with this.
[2022-08-10 12:53] VITALS: BP 111/78
[2022-08-10] MEDS ORDERED: traZODone 50mg tablet PO SCH (21:00)
[2022-08-10] MEDS ORDERED: montelukast 10mg tablet PO SCH (21:00)
[2022-08-10] MEDS ORDERED: hydrOXYzine 25 MG tablet PO SCH (21:00)
[2022-08-10] MEDS ORDERED: divalproex sodium 500mg tablet.DR PO SCH (21:00)
[2022-08-10] MEDS ORDERED: topiramate 100mg tablet PO SCH (21:00)
[2022-08-10] MEDS ORDERED: PALIPERIDONE 3 MG TAB.ER.24 PO SCH (21:00)
== END 2022-08-10 12:44 | disposition home or self-care (01) ==
LOC: ER 22:02
DX: R45.851 Suicidal ideations (principal); Z20.822 Contact with and (suspected) exposure to COVID-19; F20.9 Schizophrenia, unspecified; F31.9 Bipolar disorder, unspecified; Z88.2 Allergy status to sulfonamides; Z79.899 Other long term (current) drug therapy; Z79.1 Long term (current) use of non-steroidal anti-inflammatories (NSAID); Z79.2 Long term (current) use of antibiotics
CPT/HCPCS: 36415; 80053; 80305; 80320; 81001; 81025; 85025; 87811; 99285

== ENCOUNTER 2022-08-16 16:04 | Emergency (ER) | payer MEDICAID ==
[~2022-08-16] VITALS: Ht 165.1 cm; Wt 100.0 kg
[~2022-08-16 16:04] MED LIST changes: -DOCU-148 PO
[2022-08-16 16:17] VITALS: BP 121/76
== END 2022-08-16 17:13 | disposition home or self-care (01) ==
LOC: ER 16:05
DX: F91.9 Conduct disorder, unspecified (principal); R45.850 Homicidal ideations; F20.9 Schizophrenia, unspecified; F31.9 Bipolar disorder, unspecified; Z88.2 Allergy status to sulfonamides; Z79.899 Other long term (current) drug therapy
CPT/HCPCS: 99281; 99285

== ENCOUNTER 2022-08-19 18:21 | Emergency (ER) | payer MEDICAID ==
[~2022-08-19] VITALS: Ht 165.1 cm; Wt 90.9 kg
[2022-08-19 18:34] VITALS: BP 122/86
== END 2022-08-19 19:46 | disposition home or self-care (01) ==
LOC: ER 18:22
DX: F91.9 Conduct disorder, unspecified (principal); F31.9 Bipolar disorder, unspecified; Z88.2 Allergy status to sulfonamides
CPT/HCPCS: 99281

== ENCOUNTER 2022-09-14 11:59 | Emergency (ER) | payer MEDICAID ==
[~2022-09-14] VITALS: Ht 162.6 cm; Wt 111.4 kg
--- NOTE | 2022-09-14 13:11 | NUR ---
The patient was moved to bed 22 from Triage. She is cooperative with nursing requests. She has given a urine sample and changed into greens scrubs. She had her initial labs drawn and she is currently eating lunch. She denies that she is having thoughts to harm herself. She stated that she has thoughts to harm the staff at her fpc, "I just don't like them...They aren't helping me to move faster" Psychotic symptoms are denied. She reports she has not slept in two days. She is malodorous. She described her mood was "okay"
[2022-09-14 13:21] LABS: CLARITY,URINE CLEAR (Clear); COLOR,URINE YELLOW (Yellow); GLUCOSE, URINE NEGATIVE (Neg); KETONES,URINE NEGATIVE (Neg); LEUKOCYTE ESTERASE ,URINE TRACE (Neg); NITRITES, URINE NEGATIVE (Neg); OCCULT BLOOD,URINE SMALL (Neg); PROTEIN,URINE TRACE mg/dl (Neg); UROBILINOGEN,URINE 0.2 E.U/dL (0.2-1.0)
[2022-09-14 13:22] LABS: URINE HCG NEGATIVE (NEG)
[2022-09-14 13:26] LABS: UA COLLECTION TYPE CLN CATCH MIDSTREAM
[2022-09-14 13:29] LABS: WBC,URINE 0-4 /HPF (0-4)
--- NOTE | 2022-09-14 13:29 | NUR ---
Per lab urine is being rejected for culture.
[2022-09-14 13:30] LABS: BACTERIA,URINE FEW /HPF (Neg); MUCUS STRANDS FEW /LPF (Neg); RBC,URINE 0-2 /HPF (0-2); SQUAMOUS EPITHELIAL CELL,UR MANY /LPF (FEW)
[2022-09-14 13:34] LABS: URINE AMPHETAMINE SCREEN NEGATIVE (Neg); URINE BARBITUATE SCREEN NEGATIVE (Neg); URINE BENZODIAZEPINES SCREEN NEGATIVE (Neg); URINE CANNABINOID SCREEN NEGATIVE (Neg); URINE COCAINE SCREEN NEGATIVE (Neg); URINE METHADONE SCREEN NEGATIVE (Neg); URINE OPIATE SCREEN NEGATIVE (Neg); URINE PHENCYCLIDINE SCREEN NEGATIVE (Neg)
--- NOTE | 2022-09-14 13:44 | NUR ---
[facility] contacted for current medication list
[2022-09-14 13:49] LABS: BASOPHILS % (AUTO) 0.2 % (0-1); EOSINOPHILS % (AUTO) 0.1 % (0-6); HEMATOCRIT 40.5 % (35.0-45.0); HEMOGLOBIN 13.6 g/dl (12.0-16.0); LYMPHOCYTES # (AUTO) 1.4 X10'3 (1.1-4.8); LYMPHOCYTES % (AUTO) 20.4 % (21-51); MEAN CORPUSCULAR HEMOGLOBIN 30.1 PG (27.0-31.0); MEAN CORPUSCULAR HGB CONC 33.7 g/dL (33.0-36.5); MEAN CORPUSCULAR VOLUME 89.5 FL (78-98); MEAN PLATELET VOLUME 9.1 FL (7.4-10.4); MONOCYTES # (AUTO) 0.5 X10'3 (0-0.9); MONOCYTES % (AUTO) 7.2 % (2-12); NEUTROPHILS # (AUTO) 4.8 X10'3 (1.8-7.7); NEUTROPHILS % (AUTO) 72.1 % (42-75); PLATELET COUNT 103 X10'3 (140-440); RED BLOOD COUNT 4.52 X10'6 (4.20-5.60); RED CELL DISTRIBUTION WIDTH 13.8 % (11.5-14.5); WHITE BLOOD COUNT 6.7 X10'3 (4.5-11.0)
[2022-09-14 14:04] LABS: ALANINE AMINOTRANSFERASE 51 U/L (12-78); ALBUMIN 3.7 G/DL (3.4-5.0); ALBUMIN/GLOBULIN RATIO 0.9 (1.1-1.5); ALKALINE PHOSPHATASE 125 IU/L (46-116); ANION GAP 17 (8-16); ASPARTATE AMINO TRANSFERASE 22 U/L (10-37); BILIRUBIN,TOTAL 0.8 MG/DL (0.1-1.0); BLOOD UREA NITROGEN 21 MG/DL (7-18); BUN/CREATININE RATIO 22.6 (10.0-20.0); CALCIUM 9.4 MG/DL (8.5-10.1); CHLORIDE 105 MMOL/L (99-107); CREATININE 0.93 MG/DL (0.40-0.90); GLUCOSE 114 MG/DL (70-104); POTASSIUM 3.4 MMOL/L (3.5-5.1); SODIUM 144 MMOL/L (135-145); TOTAL CARBON DIOXIDE 22.5 MMOL/L (24-32); TOTAL PROTEIN 7.6 G/DL (6.4-8.2); eGFR 71 ML/MIN
[2022-09-14] MEDS ORDERED: potassium Cl 20 mEq SR tablet PO STA (14:05)
[2022-09-14 14:07] LABS: ETHANOL < 0.010 GM/DL (0.0-0.010)
[2022-09-14] MEDS ORDERED: DOCU-148 PO (14:07)
[2022-09-14] MEDS ORDERED: ARIP10TA14 PO (14:07)
[2022-09-14] MEDS ORDERED: HYDR-3686 PO ×2 (14:07)
[2022-09-14] MEDS ORDERED: CETI-90 PO (14:07)
[2022-09-14] MEDS ORDERED: DIVA500T4 PO (14:07)
[2022-09-14] MEDS ORDERED: CLINDAMYCIN 1% TOP (14:07)
[2022-09-14] MEDS ORDERED: QUET400T PO (14:07)
[2022-09-14] MEDS ORDERED: QUET-1 PO (14:07)
[2022-09-14] MEDS ORDERED: TOPI25TA49 PO (14:07)
--- NOTE | 2022-09-14 14:10 | NUR ---
PACKET FAXED TO [facility]
[2022-09-14] MEDS ORDERED: QUET25TA PO (14:21)
[2022-09-14] MEDS ORDERED: ibuprofen 200mg tablet PO PRN (14:40)
[2022-09-14] MEDS ORDERED: QUEtiapine 25mg tablet PO PRN (14:40)
--- NOTE | 2022-09-14 14:46 | NUR ---
The patient is resting quietly on her bed
--- NOTE | 2022-09-14 15:34 | NUR ---
Amina stiles in [facility] - 09/14/22 at 1535 by MILO Page out to [facility] and Chemical Dependency Therapist to come and see patient regarding discharge Per Order from Dr. De Paz
--- NOTE | 2022-09-14 16:16 | NUR ---
The patient is sitting on the side of her bed and talking to her audrey bear.
--- NOTE | 2022-09-14 17:42 | NUR ---
The patient has been sitting on the side of her bed. She is pleasant. She has not had any agitation or aggressive behaviors.
[2022-09-14] MEDS ORDERED: NYSTATIN 60 GM POWDER-BULK CONTAINER TP SCH (20:00)
[2022-09-14] MEDS: ferrous sulfate 325mg tablet PO SCH (21:14)
[2022-09-14] MEDS: quetiapine 100mg tablet PO SCH (21:14)
[2022-09-14] MEDS: PALIPERIDONE 3 MG TAB.ER.24 PO SCH (21:14)
[2022-09-14] MEDS: traZODone 50mg tablet PO SCH (21:14)
[2022-09-14] MEDS: docusate sod 100mg capsule PO SCH (21:14)
[2022-09-14] MEDS: montelukast 10mg tablet PO SCH (21:15)
[2022-09-14] MEDS: topiramate 25mg tablet PO SCH (21:15)
[2022-09-14] MEDS: hydrOXYzine 25 MG tablet PO SCH (21:15)
[2022-09-14] MEDS: divalproex sodium 500mg tablet.DR PO SCH (21:15)
[2022-09-14] MEDS: nystatin 15 GM powder TP SCH (21:26)
--- NOTE | 2022-09-14 22:17 | NUR ---
Pt sleeping cuddling a stuffed bear named Braulio. Awakened at 21:00 for medications. PT pleasant and cooperative took all medications, went into BR and cleaned panus so Nystatin powder could be applied. Pt alert oriented to person, place. Unable to assess orientation to situation. Pt said she remembered why she waws here but did not want to talk about it.
[2022-09-14] MEDS ORDERED: Melatonin 3mg tablet PO ONE (23:45)
[2022-09-14] MEDS ORDERED: Melatonin 3mg tablet PO SCH (23:45)
--- NOTE | 2022-09-15 05:41 | NUR ---
Pt still asleep.
--- NOTE | 2022-09-15 07:04 | NUR ---
Patient lying in bed talking to her audrey bear. Pt ambulated to bathroom without issue.
[2022-09-15] MEDS: fluticasone nasal spray 16GM bottle NS SCH (08:00)
--- NOTE | 2022-09-15 08:15 | NUR ---
Received call from Nieves at [facility]. Pt has a history or attention seeking behaviors. She reports that pt knows what to do to be taken to the ED pt calls it "a get away." Pt has her audrey bear with her and Nieves suggest that if pt isn't allowed to have her bear (which is OF hospital policy) she won't want to stay. Pt has not been evaluated by [facility] yet and was brought in on a 5150. Pt has had no behaviors since being admitted.
[2022-09-15] MEDS: docusate sod 100mg capsule PO SCH ×2 (08:24→20:14)
[2022-09-15] MEDS: ARIPIPRAZOLE 10 MG TABLET PO SCH (08:24)
[2022-09-15] MEDS: cetirizine 10mg tablet PO SCH (08:24)
[2022-09-15] MEDS: fenofibrate 48mg tablet PO SCH (08:24)
[2022-09-15] MEDS: ferrous sulfate 325mg tablet PO SCH ×3 (08:24→20:14)
[2022-09-15] MEDS: cholecalciferol (vitamin D3) 1,000 unit (25mcg) tablet PO SCH (08:24)
[2022-09-15] MEDS: hydrOXYzine 25 MG tablet PO PRN (08:25)
[2022-09-15] MEDS: nystatin 15 GM powder TP SCH ×4 (08:30→20:13)
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
--- NOTE | 2022-09-15 09:22 | NUR ---
Amina stiles in ED - 09/15/22 at 0926 by JUDY Pt awake lying on her bed. Pt appears afraid and wants to go home.
--- NOTE | 2022-09-15 10:08 | NUR ---
Pt was observed to be laying off the side of the bed upside down and was opening and closing drawers of her bedside stand on her fingers. Pt was warned to leave the drawers alone or the stand would be moved. Pt continued to play with the drawers and began peeling the metal sliding bar on the interior of the drawer off the stand. I informed the Pt that I would now be removing the stand of drawers and the Pt began to swing closed fists at me as I removed the stand of drawers. Pt ceased attempting to hit me after I removed the drwaers Addendum: 09/15/22 at 1012 by LFOUTS Drawers*. RN was informed. Pt is laying on bed at this time. Will continue to monitor.
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
--- NOTE | 2022-09-15 10:21 | NUR ---
Pt was observed wrapping the bed cord around her hand. I told the Pt to stop and the Pt again began to hit at me with closed fists. The RN attempted to removed the cord but the PT would not let it go. The RN called security at this time while I remained at bedside to ensure Pt safety. I continued to assist the RN with removing the cord with success.
--- NOTE | 2022-09-15 11:11 | NUR ---
Pt is lying in pr Addendum: 09/15/22 at 1111 by JUDY Pt is lying on left side, appears to be sleeping. No current behaviors.
--- NOTE | 2022-09-15 12:15 | NUR ---
Pt has required mulitple verbal redirectioni to put her shirt back on. Pt was initially lying on her bed with out her shirt. Pt then stood up and stood against the wall withouout shirt. Pt continues to strike out at staff when asked to return to her bed. Pt was even given another clean scrub top to put on and she removed it. Informatics Pharmacist left to get PRN medication and soft retraints. When television script writer returned pt was attempting to elope and was combative with staff. Verbal deescalation was not effective. See Kavitha, PCT note. Due to pt's behavior, receieve order for restraints and IM Benadryl 50mg, Haldol 5mg, Ativan 1mg.
[2022-09-15] MEDS ORDERED: LORazepam 2 mg/ml vial IM ONE (12:20)
[2022-09-15] MEDS ORDERED: haloperidol lactate 5mg/ml inj IM ONE (12:20)
[2022-09-15] MEDS ORDERED: diphenhydrAMINE 50 mg/ml inj IM ONE (12:20)
--- NOTE | 2022-09-15 12:30 | NUR ---
Pt administered IM medication without issue. Security at bedside.
--- NOTE | 2022-09-15 12:50 | NUR ---
Certified Pediatric Nurse Practitioner was at bedside obtaining vitals. Pt is tearful, still won't talk, but shakes head. Certified Pediatric Nurse Practitioner explained that her behavior is acceptable. She can't hit, kick or bite staff. Certified Pediatric Nurse Practitioner asked pt if she felt she was given ample opportunity to change her behavior and she shook her head "yes." Certified Pediatric Nurse Practitioner also asked if she acted like this at her group room and she was able to get away with it, pt again responded with a "yes" head nod. Certified Pediatric Nurse Practitioner asked why was she acting out pt stated "because you took my bear away." Certified Pediatric Nurse Practitioner attempted to talk about other ways to communicate instead of physically acting out. Pt reports she has been in restraints before while at [facility].
--- NOTE | 2022-09-15 12:52 | NUR ---
Pt stood up beside exit of unit. I asked the Pt if she was getting ready to run and she stated yes. I physically and visually acted as a detterent by standing in front of the exit. The Pt then began to tell me "I want to murder your children. I kill babies and I like to see them ". I informed the Pt again that she was unable to leave the facility. The Pt while standing then attempted to strike me closed fists and attempted to kick me. Pt failed to comply with verbal redirection. During this exchange, The nursing staff had called for security. Security arrived promptly and with security prescense the Pt agreed to lay down in her bed. Security and I assisted the RN with the application of 4 point restraints.
--- NOTE | 2022-09-15 13:15 | NUR ---
RELEASED FROM RESTRAINTS X 3. Pt eating lunch.
--- NOTE | 2022-09-15 13:30 | NUR ---
Removed restraint x1 (left ankle.) Pt continues to be calm. Pt agrees with a head nod that she will not attempt to leave unit nor hit, bit or kick staff. Pt ate about 90% of her lunch.
--- NOTE | 2022-09-15 13:47 | NUR ---
Pt ambulated to bathroom. Gait steady. Pt calm.
[2022-09-15] MEDS: quetiapine 100mg tablet PO SCH ×2 (14:21→20:14)
--- NOTE | 2022-09-15 15:34 | NUR ---
Pt resting comfortably in mid colon's position. Respirations even and unlabored.
--- NOTE | 2022-09-15 17:06 | NUR ---
Pt on phone with Nieves at [facility]. Pt has been calm since receiving her emergency medication.
--- NOTE | 2022-09-15 17:11 | NUR ---
PER SYLVAIN, [facility] PT'S CUSTODIAL IS NOT GOING TO TAKE PATIENT BACK. 5150 IS UPHELD. PT NOTIFIED. NO BEHAVIORS OF YET.
--- NOTE | 2022-09-15 18:12 | NUR ---
Pt sitting at bedside coloring. No behaviors.
--- NOTE | 2022-09-15 18:30 | NUR ---
Pt was sitting on her bed coloring at change of shift. Pt says she is sad. Pt states she is here for "lots of reasons." Pt states she knows she can't go back home and doesnt know how she feels about this. Pts restraints have been removed from her bed.
--- NOTE | 2022-09-15 19:37 | NUR ---
Pt laying in bed quietly
[2022-09-15] MEDS: PALIPERIDONE 3 MG TAB.ER.24 PO SCH (20:13)
[2022-09-15] MEDS: traZODone 50mg tablet PO SCH (20:14)
[2022-09-15] MEDS: montelukast 10mg tablet PO SCH (20:14)
[2022-09-15] MEDS: divalproex sodium 500mg tablet.DR PO SCH (20:14)
[2022-09-15] MEDS: topiramate 25mg tablet PO SCH (20:14)
[2022-09-15] MEDS: hydrOXYzine 25 MG tablet PO SCH (20:14)
--- NOTE | 2022-09-15 21:32 | NUR ---
Pt is sleeping rr even and unlabored
--- NOTE | 2022-09-15 22:01 | NUR ---
pt declined meal at dinner time and then fell asleep. Dinner tray was held. Pt is eating dinner now.
--- NOTE | 2022-09-16 | NUR ---
Pt finished dinner and requested a warm blanket and was provided with one and went back to sleep. Pt is currently on her right side asleep. RR even and unlabored.
--- NOTE | 2022-09-16 03:10 | NUR ---
Pt is laying on her right side. Appears to be sleeping, rise and fall of chest noted.
--- NOTE | 2022-09-16 05:28 | NUR ---
Pt is laying on her right side asleep, rr even and unlabored.
--- NOTE | 2022-09-16 07:00 | NUR ---
Pt resting comfortably, rr even and unlabored.
--- NOTE | 2022-09-16 09:00 | NUR ---
Pt woke and ate her breakfast. Pt compliant with medication. Applied Nystatin powder to periarea. Mild erythema noted between upper thighs.
[2022-09-16] MEDS: nystatin 15 GM powder TP SCH ×3 (09:56→20:03)
[2022-09-16] MEDS: fluticasone nasal spray 16GM bottle NS SCH (09:56)
[2022-09-16] MEDS: ARIPIPRAZOLE 10 MG TABLET PO SCH (09:58)
[2022-09-16] MEDS: docusate sod 100mg capsule PO SCH ×2 (09:58→20:03)
[2022-09-16] MEDS: ferrous sulfate 325mg tablet PO SCH ×3 (09:58→20:03)
[2022-09-16] MEDS: cholecalciferol (vitamin D3) 1,000 unit (25mcg) tablet PO SCH (09:58)
[2022-09-16] MEDS: cetirizine 10mg tablet PO SCH (09:58)
[2022-09-16] MEDS: fenofibrate 48mg tablet PO SCH (09:58)
[2022-09-16] MEDS: hydrOXYzine 25 MG tablet PO PRN (09:59)
--- NOTE | 2022-09-16 10:59 | NUR ---
Pt up to bathroom to brush teeth.
--- NOTE | 2022-09-16 12:34 | NUR ---
Pt lying in bed on left side. Pt ate about 25% of her lunch.
[2022-09-16] MEDS: quetiapine 100mg tablet PO SCH ×2 (13:54→20:03)
--- NOTE | 2022-09-16 14:04 | NUR ---
Pt continues to cooperative and calm. Pt lying on her bed waiting to watch T.V. Pt was offered vanilla ice cream since her behaviors have been appropriate. Pt declined.
--- NOTE | 2022-09-16 15:07 | NUR ---
Pt watching T.V. Horizontal Drill Operator reinforced her positive behavior.
--- NOTE | 2022-09-16 16:01 | NUR ---
Per Martin [facility] clinician. Pt will be discharged tomorrow to [facility] then back to her senior care.
--- NOTE | 2022-09-16 16:01 | NUR ---
SERVICE CAR OPERATOR CONTINUES TO PRESENT WITH APPROPRIATE BEHAVIOR. PT GIVEN AN ICE CREAM REWARD. SERVICE CAR OPERATOR CONTINUES TO REINFORCE APPROPRIATE BX.
--- NOTE | 2022-09-16 19:00 | NUR ---
The patient is sitting at the bedside eating dinner and watching tv quietly
[2022-09-16] MEDS: montelukast 10mg tablet PO SCH (20:02)
[2022-09-16] MEDS: divalproex sodium 500mg tablet.DR PO SCH (20:02)
[2022-09-16] MEDS: topiramate 25mg tablet PO SCH (20:02)
[2022-09-16] MEDS: PALIPERIDONE 3 MG TAB.ER.24 PO SCH (20:03)
[2022-09-16] MEDS: hydrOXYzine 25 MG tablet PO SCH (20:03)
[2022-09-16] MEDS: traZODone 50mg tablet PO SCH (20:03)
--- NOTE | 2022-09-16 20:22 | NUR ---
The patient has been pleasant and calm. She has been medication compliant. She denies that she has any thoughts to harm herself or anyone else. She stated that her mood was good.
--- NOTE | 2022-09-16 21:49 | NUR ---
The patient appears to be sleeping
--- NOTE | 2022-09-16 23:29 | NUR ---
The patient appears to be sleeping
--- NOTE | 2022-09-17 01:00 | NUR ---
The patient appears to be sleeping
--- NOTE | 2022-09-17 03:00 | NUR ---
The patient appears to be sleeping
--- NOTE | 2022-09-17 05:03 | NUR ---
The patient is sitting up on the side of her bed, coloring and talking to herself.
--- NOTE | 2022-09-17 06:32 | NUR ---
Patient watching t.v. this morning. Up to the restroom, then back to bed. No distress noted.
--- NOTE | 2022-09-17 07:17 | NUR ---
Patient listening to music videos and singing along.
--- NOTE | 2022-09-17 08:04 | NUR ---
Patient is eating breakfast, [facility]
[2022-09-17] MEDS: cholecalciferol (vitamin D3) 1,000 unit (25mcg) tablet PO SCH (08:31)
[2022-09-17] MEDS: ARIPIPRAZOLE 10 MG TABLET PO SCH (08:31)
[2022-09-17] MEDS: fenofibrate 48mg tablet PO SCH (08:31)
[2022-09-17] MEDS: docusate sod 100mg capsule PO SCH (08:31)
[2022-09-17] MEDS: cetirizine 10mg tablet PO SCH (08:31)
[2022-09-17] MEDS: ferrous sulfate 325mg tablet PO SCH (08:31)
[2022-09-17] MEDS: nystatin 15 GM powder TP SCH (08:32)
[2022-09-17] MEDS: fluticasone nasal spray 16GM bottle NS SCH (08:32)
[2022-09-17 08:42] VITALS: BP 104/77; PULSE 104; RESP 16; TEMP 97.5; O2SAT 99
--- NOTE | 2022-09-17 08:45 | NUR ---
Patient was cleared for discharge back to shelter. [facility] here to transport patient to a doctor's office appointment, then back to her shelter. a.m. medications given before discharge.
== END 2022-09-17 08:49 | disposition home or self-care (01) ==
LOC: ER 11:59
DX: Z88.2 Allergy status to sulfonamides (principal); Z88.8 Allergy status to other drugs, medicaments and biological substances; Z91.09 Other allergy status, other than to drugs and biological substances; Z79.1 Long term (current) use of non-steroidal anti-inflammatories (NSAID); Z79.899 Other long term (current) drug therapy; F31.9 Bipolar disorder, unspecified
CPT/HCPCS: 36415; 80053; 80305; 80320; 81001; 81025; 85025; 87811; 96372; 99285; J1200; J1630; J2060; Q0177

== ENCOUNTER 2022-11-23 17:27 | Emergency (ER) | payer MEDICAID ==
[~2022-11-23] VITALS: Ht 152.4 cm; Wt 91.0 kg
[~2022-11-23 17:27] MED LIST changes: +ARIP10TA14 PO; -ARIP5TAB14 PO; +CETI-90 PO; +CLINDAMYCIN 1% TOP; -DIVA500T2 PO; +DIVA500T4 PO; +DOCU-148 PO; -NORETHINDRONE PO; +QUET-1 PO; +QUET400T PO; -TOP100T PO; +TOPI25TA49 PO
[2022-11-23 17:41] VITALS: TEMP 98.5
--- NOTE | 2022-11-23 19:02 | NUR ---
Patient brought over from room H16 to room 22. Pt changed into green scrubs and diet ordered. Water at bedside. Pt here atre calling LE because she wanted to leave the facility she was in. Pt threatened staff and was brought in to ED. Pt denies SI/HI/AV/VH. No paranoid or delusional statements made to this racebook writer.
[2022-11-23 21:14] LABS: BASOPHILS % (AUTO) 0.6 % (0-1); EOSINOPHILS % (AUTO) 0.3 % (0-6); HEMATOCRIT 40.1 % (35.0-45.0); HEMOGLOBIN 13.6 g/dl (12.0-16.0); LYMPHOCYTES # (AUTO) 1.4 X10'3 (1.1-4.8); LYMPHOCYTES % (AUTO) 28.6 % (21-51); MEAN CORPUSCULAR HEMOGLOBIN 30.3 PG (27.0-31.0); MEAN CORPUSCULAR HGB CONC 33.8 g/dL (33.0-36.5); MEAN CORPUSCULAR VOLUME 89.5 FL (78-98); MEAN PLATELET VOLUME 9.3 FL (7.4-10.4); MONOCYTES # (AUTO) 0.4 X10'3 (0-0.9); MONOCYTES % (AUTO) 7.4 % (2-12); NEUTROPHILS # (AUTO) 3.2 X10'3 (1.8-7.7); NEUTROPHILS % (AUTO) 63.1 % (42-75); PLATELET COUNT 74 X10'3 (140-440); RED BLOOD COUNT 4.48 X10'6 (4.20-5.60); RED CELL DISTRIBUTION WIDTH 13.3 % (11.5-14.5)
--- NOTE | 2022-11-23 21:14 | NUR ---
Patient in her room, pt c/o pain under her left armpit. Crotch Breaker examined pt and found a small reddened area 3x4 cm. area is painful to touch. 98.5. MD has not evaluated pt as of this time.
[2022-11-23 21:17] LABS: URINE HCG NEGATIVE (NEG)
[2022-11-23 21:27] LABS: ALANINE AMINOTRANSFERASE 49 U/L (12-78); ALBUMIN 3.4 G/DL (3.4-5.0); ALKALINE PHOSPHATASE 94 IU/L (46-116); ANION GAP 5 (8-16); ASPARTATE AMINO TRANSFERASE 20 U/L (10-37); BILIRUBIN,TOTAL 0.5 MG/DL (0.1-1.0); BLOOD UREA NITROGEN 20 MG/DL (7-18); BUN/CREATININE RATIO 24.1 (10.0-20.0); CALCIUM 9.3 MG/DL (8.5-10.1); CHLORIDE 107 MMOL/L (99-107); CREATININE 0.83 MG/DL (0.40-0.90); GLUCOSE 105 MG/DL (70-104); POTASSIUM 3.6 MMOL/L (3.5-5.1); SODIUM 141 MMOL/L (135-145); TOTAL CARBON DIOXIDE 29.5 MMOL/L (24-32); TOTAL PROTEIN 6.8 G/DL (6.4-8.2); eCRCL 71 ML/MIN; eGFR 81 ML/MIN
[2022-11-23 21:36] LABS: ETHANOL < 10 MG/DL (<10); THYROID STIMULATING HORMONE 0.95 ulU/ml (0.34-4.50)
[2022-11-23 21:40] LABS: URINE AMPHETAMINE SCREEN NEGATIVE (Neg); URINE BARBITUATE SCREEN NEGATIVE (Neg); URINE BENZODIAZEPINES SCREEN NEGATIVE (Neg); URINE CANNABINOID SCREEN NEGATIVE (Neg); URINE COCAINE SCREEN NEGATIVE (Neg); URINE METHADONE SCREEN NEGATIVE (Neg); URINE OPIATE SCREEN NEGATIVE (Neg); URINE PHENCYCLIDINE SCREEN NEGATIVE (Neg)
--- NOTE | 2022-11-23 22:33 | NUR ---
Patient sleeping on right side, in no distress. Monitor for safety.
--- NOTE | 2022-11-24 00:35 | NUR ---
Pt resting quietly in bed with eyes closed. RR even and pt in NAD. Monitor for safety.
--- NOTE | 2022-11-24 01:18 | NUR ---
Pt awake sitting at bedside. Pt drank some juice. No issues noted. Monitor for safety.
[2022-11-24] MEDS ORDERED: traZODone 150mg tablet PO ONE (01:30)
--- NOTE | 2022-11-24 01:39 | NUR ---
Order received for Trazodone to help pt sleep. 150mg of Trazodone given. RR even and unlabored. Pt in NAD. [place] for safety.
--- NOTE | 2022-11-24 03:24 | NUR ---
Pt sleeping well, no distress noted. Monitor for safety.
--- NOTE | 2022-11-24 05:34 | NUR ---
Patient asleep in NAD. RR even and unlabored. Monitor for safety.
[2022-11-24 05:52] VITALS: BP 106/72; PULSE 84; O2SAT 98
--- NOTE | 2022-11-24 06:45 | NUR ---
Patient sitting up in bed. No distress observed. Continue to monitor.
--- NOTE | 2022-11-24 06:52 | NUR ---
Faxed packet to [facility].
[2022-11-24 07:10] VITALS: RESP 16
[2022-11-24] MEDS ORDERED: PALI3TAB5 PO (08:29)
--- NOTE | 2022-11-24 08:47 | NUR ---
Karin Ramirez, . Director of [facility].
--- NOTE | 2022-11-24 09:04 | NUR ---
RN reported left axiallary abscess to Dr. Panchal. +red and tender to touch. Pending evaluation.
--- NOTE | 2022-11-24 10:03 | NUR ---
Patient chatting with Karin patient's Home Director. No distress observed. Continue to monitor.
[2022-11-24] MEDS ORDERED: DOXY-356 PO (11:25)
--- NOTE | 2022-11-24 12:08 | NUR ---
Patient eating lunch. No distress observed. Continue to monitor.
== END 2022-11-24 14:55 | disposition home or self-care (01) ==
LOC: ER 17:28
DX: F29 Unspecified psychosis not due to a substance or known physiological condition (principal); Z20.822 Contact with and (suspected) exposure to COVID-19; R45.850 Homicidal ideations; F20.9 Schizophrenia, unspecified; F31.9 Bipolar disorder, unspecified; Z79.899 Other long term (current) drug therapy; Z88.2 Allergy status to sulfonamides; Z88.8 Allergy status to other drugs, medicaments and biological substances
CPT/HCPCS: 36415; 80053; 80305; 80320; 81025; 84443; 85025; 87811; 99284; 99285

== ENCOUNTER 2023-01-25 09:10 | Emergency (ER) | payer MEDICAID ==
[~2023-01-25] VITALS: Ht 154.9 cm; Wt 80.0 kg
[~2023-01-25 09:10] MED LIST changes: +PALI3TAB5 PO; -PALI9TAB PO
[2023-01-25 09:12] VITALS: BP 115/77; PULSE 96; TEMP 98.2; O2SAT 100
[2023-01-25 10:45] LABS: URINE HCG NEGATIVE (NEG)
[2023-01-25 11:00] LABS: URINE AMPHETAMINE SCREEN NEGATIVE (Neg); URINE BARBITUATE SCREEN NEGATIVE (Neg); URINE BENZODIAZEPINES SCREEN NEGATIVE (Neg); URINE CANNABINOID SCREEN NEGATIVE (Neg); URINE COCAINE SCREEN NEGATIVE (Neg); URINE METHADONE SCREEN NEGATIVE (Neg); URINE OPIATE SCREEN NEGATIVE (Neg); URINE PHENCYCLIDINE SCREEN NEGATIVE (Neg)
--- NOTE | 2023-01-25 11:06 | NUR ---
pt sitting on her bed quietly without distress
[2023-01-25 11:11] LABS: BASOPHILS % (AUTO) 0.1 % (0-1); EOSINOPHILS % (AUTO) 0 % (0-6); HEMATOCRIT 42.7 % (35.0-45.0); HEMOGLOBIN 14.4 g/dl (12.0-16.0); LYMPHOCYTES # (AUTO) 1.2 X10'3 (1.1-4.8); LYMPHOCYTES % (AUTO) 25.5 % (21-51); MEAN CORPUSCULAR HEMOGLOBIN 30.2 PG (27.0-31.0); MEAN CORPUSCULAR HGB CONC 33.8 g/dL (33.0-36.5); MEAN CORPUSCULAR VOLUME 89.5 FL (78-98); MEAN PLATELET VOLUME 9.1 FL (7.4-10.4); MONOCYTES # (AUTO) 0.3 X10'3 (0-0.9); MONOCYTES % (AUTO) 6.5 % (2-12); NEUTROPHILS # (AUTO) 3.1 X10'3 (1.8-7.7); NEUTROPHILS % (AUTO) 67.9 % (42-75); PLATELET COUNT 83 X10'3 (140-440); RED BLOOD COUNT 4.77 X10'6 (4.20-5.60); RED CELL DISTRIBUTION WIDTH 13.5 % (11.5-14.5); WHITE BLOOD COUNT 4.6 X10'3 (4.5-11.0)
[2023-01-25 11:26] VITALS: RESP 15
[2023-01-25 11:34] LABS: ALANINE AMINOTRANSFERASE 44 U/L (12-78); ALKALINE PHOSPHATASE 111 IU/L (46-116); ANION GAP 13 (8-16); ASPARTATE AMINO TRANSFERASE 31 U/L (10-37); BILIRUBIN,TOTAL 0.9 MG/DL (0.1-1.0); BLOOD UREA NITROGEN 28 MG/DL (7-18); BUN/CREATININE RATIO 36.4 (10.0-20.0); CALCIUM 9.5 MG/DL (8.5-10.1); CHLORIDE 106 MMOL/L (99-107); CREATININE 0.77 MG/DL (0.40-0.90); ETHANOL < 10 MG/DL (<10); GLUCOSE 80 MG/DL (70-104); POTASSIUM 4.1 MMOL/L (3.5-5.1); SODIUM 143 MMOL/L (135-145); TOTAL CARBON DIOXIDE 23.6 MMOL/L (24-32); TOTAL PROTEIN 7.9 G/DL (6.4-8.2); eCRCL 81 ML/MIN; eGFR 88 ML/MIN
--- NOTE | 2023-01-25 13:39 | NUR ---
Patient just brought to ED overflow from [facility] accompanied by electronic bench technicianjim Cary. Patient was reportedly agitated and need behavioral restraints. Behavioral restraints applied on both arms at this time.
--- NOTE | 2023-01-25 13:42 | NUR ---
For about an hour pt was acting up by pushing call light, code blue light, trying to rip picture off of wall. I sat and did one on one sight. pt kept kept making threats of hurting staff. pt throw bp cuff and wrist band at me. pt tried to rip her dress and when asked to stop she told me that she wanted every one to see her naked.pt kept lifting dress to try to expose her self so i turned her towards the wall. pt then took dress off, at this time i asked vegetable worker to help me put a gown one while putting gown on pt tried to grab and hit vegetable worker and myself.We got the gown on and pt throw herself on the ground and banged her feet and head against wall. pt was taken to overflow and put in restraints for staff saftey and pt safety.
[2023-01-25] MEDS ORDERED: diphenhydrAMINE 50 mg/ml inj IM ONE (13:45)
[2023-01-25] MEDS ORDERED: LORazepam 2 mg/ml vial IM ONE (13:45)
--- NOTE | 2023-01-25 13:49 | NUR ---
Patient started hitting the bed with her legs miltiple times, not following instructions. Security was called to assist with restraining bilateral legs.
[2023-01-25] MEDS ORDERED: haloperidol lactate 5mg/ml inj IM ONE (13:55)
--- NOTE | 2023-01-25 14:19 | NUR ---
B52 given IM for agitation and combativeness
--- NOTE | 2023-01-25 14:50 | NUR ---
Clinician Martin told me that patient will be discharge today around 5:00 pm today back to longterm.
--- NOTE | 2023-01-25 14:57 | NUR ---
Patient currently sleeping comfortably
--- NOTE | 2023-01-25 16:09 | NUR ---
Patient told the tech she wanted to pee. Bedpan offered to her, was a false alarm. Linda and myself noted patient has vaginal bleeding/menstrual period. Sanitary pad placed onto her underwear. Patient offered drink too.
--- NOTE | 2023-01-25 16:49 | NUR ---
Patient calm at this time. Discharge instructions has given to the patient. Awaiting for the staff from [facility] to come and pick her up.
--- NOTE | 2023-01-25 17:11 | NUR ---
Patient was discharged accompanied by 2 staff members from [facility]. all belongings sent with the patient.
== END 2023-01-25 17:10 | disposition home or self-care (01) ==
LOC: ER 09:10
DX: R45.851 Suicidal ideations (principal); Z20.822 Contact with and (suspected) exposure to COVID-19; F31.9 Bipolar disorder, unspecified; Z79.899 Other long term (current) drug therapy; Z88.2 Allergy status to sulfonamides
CPT/HCPCS: 36415; 80053; 80305; 80320; 81025; 85025; 87811; 96372; 99285; J1200; J1630; J2060

== ENCOUNTER 2024-12-09 15:46 | Emergency (ER) | payer MEDICAID ==
[~2024-12-09] VITALS: Ht 160 cm; Wt 88.7 kg
[~2024-12-09 15:46] MED LIST changes: -IBUP-1985 PO; +IBUP600T52 PO; +TOPI-255 PO; -TOPI25TA49 PO
--- NOTE | 2024-12-09 15:53 | Physician Documentation ---
History of Present Illness Stated Complaint: EAR & STOMACH PAIN OK to notify your PCP?: Yes [facility] Source[facility] patient Mode of Arrival: POV Exam Limitations: no limitations HPI Patient is a 34-year-old female that is a poor historian who presents to the emergency department for evaluation of right upper quadrant pain associated with nausea. There is some apparent cognitive delay. Patient reports that she has had these symptoms for approximately 1 day. Patient denies taking any new medications to help with the nausea. Patient reports that she feels hot but she has not taken her temperature. Denies any other symptoms at this time. She reports that she has had "surgery on her liver years ago" but is unable to say why. Upon record review she lives at [facility] and has a history of schizophrenia and bipolar. Medication Reconciliation Allergies: Coded Allergies: Sulfa (Sulfonamide Antibiotics) (Verified Allergy, Unknown, 12/09/24) Scheduled Aripiprazole (Abilify), 1 TAB PO DAILY, (Reported) Cetirizine HCl (Zyrtec), 1 TAB PO DAILY, (Reported) Cholecalciferol (Vitamin D3) (Vitamin D-3), 2,000 UNIT PO DAILY, (Reported) Divalproex Sodium (Depakote Er), 2 TAB PO HS, (Reported) Docusate Sodium (Colace), 1 CAP PO BID, (Reported) Fenofibrate Nanocrystallized (TRICOR tablet), 1 TAB PO DAILY, (Reported) Ferrous Sulfate* (Ferrous Sulfate*), 1 TAB PO TID, (Reported) Fluticasone Propionate (Fluticasone Propionate), 2 SPRAYS BOTHNARES DAILY, (Reported) Hydroxyzine Hcl* (Atarax*), 2 TAB PO HS, (Reported) Montelukast Sodium (Singulair), 1 TAB PO HS, (Reported) Paliperidone (Paliperidone ER), 2 TAB PO HS, (Reported) Quetiapine Fumarate (Seroquel), 1 TAB PO HS, (Reported) Quetiapine Fumarate (Seroquel), 100 MG PO DAILY, (Reported) Topiramate (Topiramate), 3 TAB PO HS, (Reported) Trazodone HCl (Trazodone HCl), 3 TAB PO HS, (Reported) [clindamycin 1%], 1 TOP BID, (Reported) Scheduled PRN Dicyclomine HCl (Dicyclomine HCl), 1 TAB PO Q6H PRN for abdominal cramps Hydroxyzine Hcl* (Atarax*), 1 TAB PO Q12H PRN for for anxiety/agitation, (Reported) Ibuprofen (Ibuprofen), 1 TAB PO Q8H PRN for pain, (Reported) Quetiapine Fumarate (Seroquel), 25 MG PO Q12H PRN for for anxiety/agitation, (Reported) Past Medical History Past Medical History: Cirrohsis, Renal Disease, *PSYCH*, Bipolar, Schizophrenia Past Surgical History: no surgical history Patient History: Patient reports no known family medical history. Alcohol Use: None Drug Use: none Lives with: Other Lives In: Assisted Care Occupation: disabled Review of Systems All Other Systems at this time: Reviewed and Negative Physical Exam Vital Signs: RN Vital Signs have been reviewed: Yes Pulse Oximetry Reflects: adequate oxygenation Physical Exam General: Alert, no apparent distress. HEENT: PERRL, no injection, moist mucous membranes. Neck: Full range of motion. Respiratory: Lungs clear, no respiratory distress. Chest: No accessory muscle use. Cardiovascular: Regular rate and rhythm, no murmurs. Gastrointestinal: nondistended. Bowels sounds present. Tenderness to palpation of right upper quadrant, no rebound tenderness, no guarding. Extremities: Normal range of motion, no deformity. Neurologic: Oriented to self and situation. Psychiatric: Normal mood and affect. Skin: Normal color, warm and dry. No edema, no ecchymosis. Progress Results/Orders Reviewed/noted all lab results: Yes EKG/XRAY/CT/US/VASC/MRI Ultrasound : Impression Abdominal ultrasound as interpreted by me shows no common bile duct dilation, no gallbladder wall thickness, echogenic liver. 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 She is developmentally delayed and getting a full history and symptoms is difficult. She now has a care take her at her bedside that has limited knowledge about this client. Her labs show an elevated alk-phos but normal AST and ALT. Her CBC shows no signs of infection. I obtained an abdominal ultrasou nd to view the liver and gallbladder. The ultrasound shows an echogenic liver which can be seen with hepatic steatosis and cirrhosis. I discussed with the patient and her caregiver that they need to follow up with her primary care provider regarding these findings for further workup if indicated. I discussed this case and findings with Dr. Graff who agrees with treatment plan and discharge. In the meantime I provided pain relief with tylenol and Bentyl and gave a bentyl prescription to go home that she can use as needed. She is given follow up instructions as well as return instructions. Differential Dx:Considerations: AAA, -Inevitable, Appendicitis, Bowel obstruction, Cholangitis, Cholelithasis, Diverticular disease, Gastritis/PUD, Hepatitis, Ischemic bowel, Pancreatitis, Urolithiasis Departure Disposition: HOME / SELF CARE / HOMELESS Impression: Primary Impression: Hepatic steatosis Additional Impression: RUQ abdominal pain Condition: Stable Discharge Instructions: Abdominal Pain (Nonspecific) Additional Instructions: Your abdominal ultrasound shows an echogenic liver which can be seen with hepatic steatosis, cirrhosis. Follow up with your PCP for further liver work up. Referrals: NO PRIMARY CARE PROVIDER (PCP) Prescriptions Dicyclomine HCl (Dicyclomine HCl) 20 Mg Tablet 1 TAB PO Q6H PRN for abdominal cramps for 30 Days, #120 TAB 0 Refills Prov: JO-ANN FISCHER [facility] 12/09/24 Education Educated: Patient, Other (typewriter mechanic) Educated regarding: diagnosis, treatment, prognosis, need for follow up Additional Comment Medical Screen Exam This patient recieved a medical screening examination. After reviewing the individual's medical complaints with presenting symptoms and performing an appropriate physical examination, it was determined that no immediate life- threatening emergency medical condition is present. This individual is also not a women having contractions. Signature Scribe Signature: . Attestation: by Jo-Ann Lynch NP . 12/09/24 19:02 Parts of this note were created using [employer] voice recognition software program. While efforts were made to correct any mistakes made by this voice recognition software program, nonsensical phrases may remain in this note. In addition, there may be errors and syntax, grammar, content and spelling. [place] [facility] Dec 09, 2024 15:53 JO-ANN FISCHER [facility] Dec 09, 2024 16:44
[2024-12-09 16:58] LABS: MEAN PLATELET VOLUME 9.4 FL (7.4-10.4); RED CELL DISTRIBUTION WIDTH 13.4 % (11.5-14.5)
[2024-12-09 17:13] LABS: CREATININE 0.70 MG/DL (0.40-0.90); TOTAL CARBON DIOXIDE 27.7 MMOL/L (24-32); eCRCL 95 ML/MIN; eGFR > 90 ML/MIN
[2024-12-09] MEDS: ondansetron 4mg rapidly disintigrating tab PO ONE (17:41)
--- NOTE | 2024-12-09 18:20 | RADIOLOGY REPORT ---
Technique: Real-time ultrasound imaging of the abdomen was performed with grayscale and color Doppler. Indication: RUQ pain, nausea, elevated alk phos Comparison: None Findings: Liver measures 16.8 cm. It is increased in echogenicity and echotexture without focal mass. Portal vein is normal in caliber and demonstrates normal hepatopetal flow. Gallbladder demonstrates no evidence for cholelithiasis. There is no pericholecystic fluid. The wall thickness is normal. The common bile duct measures 3 mm. No intrahepatic biliary ductal dilatation. The right kidney measures 9.9 cm. There is no hydronephrosis or sonographic evidence of nephrolithiasis. The visualized portion of the pancreas is unremarkable. The visualized portion of the IVC is unremarkable. Impression: Echogenic liver which can be seen with hepatic steatosis, cirrhosis.
[2024-12-09 18:45] LABS: LEUKOCYTE ESTERASE ,URINE NEGATIVE (Neg); NITRITES, URINE NEGATIVE (Neg); OCCULT BLOOD,URINE NEGATIVE (Neg)
[2024-12-09 18:48] LABS: URINE HCG NEGATIVE (NEG)
[2024-12-09 18:56] LABS: UA COLLECTION TYPE VOIDED
[2024-12-09] MEDS ORDERED: DICY20TA17 PO (18:57)
[2024-12-09 19:06] VITALS: BP 120/91; PULSE 102; RESP 20; TEMP 97.4; O2SAT 96
== END 2024-12-09 19:10 | disposition home or self-care (01) ==
LOC: ER 15:47
DX: K76.0 Fatty (change of) liver, not elsewhere classified (principal); F31.9 Bipolar disorder, unspecified; F20.9 Schizophrenia, unspecified; Z79.899 Other long term (current) drug therapy; Z88.2 Allergy status to sulfonamides
CPT/HCPCS: 36415; 76700; 80053; 81003; 81025; 83690; 85025; 99284

== ENCOUNTER 2024-12-11 08:35 | Emergency (ER) | payer SELFPAY ==
[~2024-12-11] VITALS: Ht 165.1 cm; Wt 91.2 kg
[~2024-12-11 08:35] MED LIST changes: +DICY20TA17 PO
[2024-12-11 08:40] VITALS: BP 143/95; PULSE 109; RESP 16; TEMP 97.9; O2SAT 96
[2024-12-11 09:19] LABS: URINE HCG NEGATIVE (NEG)
[2024-12-11 09:22] LABS: LEUKOCYTE ESTERASE ,URINE NEGATIVE (Neg); NITRITES, URINE NEGATIVE (Neg); OCCULT BLOOD,URINE NEGATIVE (Neg)
[2024-12-11 09:27] LABS: UA COLLECTION TYPE CLN CATCH MIDSTREAM
--- NOTE | 2024-12-11 10:03 | Physician Documentation ---
History of Present Illness ~ Chief Complaint: Multiple Medical Complaints Stated Complaint: MULTIPLE MED COMPLAINTS Time Seen by MD: 09:08 OK to notify your PCP?: Yes [facility] Source: patient, other (staff at facility ) Mode of Arrival: POV Exam Limitations: no limitations HPI 34-year-old female who is developmentally delayed brought in by staff from facility due to rash that started this morning. They were not sure if it was due to fluconazole which took last night for a vaginal yeast infection. There was only one other client at the right facility and they state that the other client does not have a rash. [place] and state that she did not report any symptoms. No fever, chills, shortness of breath, swelling. Patient also reports a 2nd complaint that she has been having pain with urination which started a few days ago. No blood in urine. No flank pain or nausea. Medication Reconciliation Allergies: Coded Allergies: Sulfa (Sulfonamide Antibiotics) (Verified Allergy, Unknown, 12/09/24) Scheduled Aripiprazole (Abilify), 1 TAB PO DAILY, (Reported) Cetirizine HCl (Zyrtec), 1 TAB PO DAILY, (Reported) Cholecalciferol (Vitamin D3) (Vitamin D-3), 2,000 UNIT PO DAILY, (Reported) Divalproex Sodium (Depakote Er), 2 TAB PO HS, (Reported) Docusate Sodium (Colace), 1 CAP PO BID, (Reported) Fenofibrate Nanocrystallized (TRICOR tablet), 1 TAB PO DAILY, (Reported) Ferrous Sulfate* (Ferrous Sulfate*), 1 TAB PO TID, (Reported) Fluticasone Propionate (Fluticasone Propionate), 2 SPRAYS BOTHNARES DAILY, (Reported) Hydroxyzine Hcl* (Atarax*), 2 TAB PO HS, (Reported) Montelukast Sodium (Singulair), 1 TAB PO HS, (Reported) Paliperidone (Paliperidone ER), 2 TAB PO HS, (Reported) Quetiapine Fumarate (Seroquel), 1 TAB PO HS, (Reported) Quetiapine Fumarate (Seroquel), 100 MG PO DAILY, (Reported) Topiramate (Topiramate), 3 TAB PO HS, (Reported) Trazodone HCl (Trazodone HCl), 3 TAB PO HS, (Reported) [clindamycin 1%], 1 TOP BID, (Reported) Scheduled PRN Dicyclomine HCl (Dicyclomine HCl), 1 TAB PO Q6H PRN for abdominal cramps Hydroxyzine Hcl* (Atarax*), 1 TAB PO Q12H PRN for for anxiety/agitation, (Reported) Ibuprofen (Ibuprofen), 1 TAB PO Q8H PRN for pain, (Reported) Quetiapine Fumarate (Seroquel), 25 MG PO Q12H PRN for for anxiety/agitation, (Reported) Past Medical History Past Medical History: Cirrohsis, Renal Disease, *PSYCH*, Bipolar, Schizophrenia Past Surgical History: no surgical history Patient History: Patient reports no known family medical history. Alcohol Use: None Drug Use: none Lives with: Other Lives In: Assisted Care Occupation: disabled Review of Systems All Other Systems at this time: Reviewed and Negative Physical Exam Vital Signs: Temperature: 97.9, Source: Oral, Heart Rate: 109, Respiratory Rate: 16, BP: 143/95, Pulse Oximetry: 96, Weight: 91.200 Oxygen Flow Rate: 0 Pulse Oximetry Reflects: adequate oxygenation Physical Exam General Appearance: Alert, WD/WN. NAD. HEENT: NCAT, PERRL, EOMI. No tongue swelling posterior pharyngeal wall normal Neck: Supple, trachea midline. Cardiovascular: RRR. No m/r/g. Lungs: CTAB. Breathing unlabored Abdomen: Soft, nondistended, NTTP Extremities: Normal inspection. No edema. Skin: Warm/dry, normal color. Erythematous papular rash in his wavy linear distribution at groin, forearms and axilla bilaterally no pustules, no lesions on face. No edema. Neurological: Alert and oriented x4, normal gait. Psychiatric: Affect congruent with mood. Progress Results/Orders Results/Orders Vital Signs 12/11/24 08:40 Temp 97.9 Pulse 109 Resp 16 B/P (MAP) 143/95 Pulse Ox 96 O2 Flow Rate 0 Laboratory Tests Test 12/11/24 08:44 Urine Specimen Description Cln catch midstream Urine Color Yellow Urine Clarity Clear Urine pH 6.0 Urine Specific [place] 1.010 Urine Protein Negative Urine Glucose (UA) Negative Urine Ketones Negative Urine Occult Blood Negative Urine Nitrite Negative Urine Bilirubin Negative Urine Urobilinogen 0.2 Urine Leukocyte Esterase Negative Urine Culture Indicated Not ind Volume Urine Centrifuged 10 ml Urine HCG, Qualitative Negative Urine Comment Medical Decision Making Additional information obtaine: other (STAFF FROM FACILITY ) Findings STAFF FROM FACILITY WHERE PATIENT LIVES Differential Dx:Considerations: Include: Abscess, AIDS/HIV, Anthrax (cutaneous), Atopic dermatitis, Candidiasis, Contact dermatitis, Drug reaction, Erythema multiforme, Erysipelas, Gangrene, Herpes zoster, Herpes simplex, Hidradenitis suppurativa, Impetigo, Intertrigo, Lymes disease, Molluscum contagiosum, Osteomyelitis, Pediculosis, Pityriasis rosea, Psoriaisis, RMSF, Rosacea, Scabies, Scarlet fever, Tinea, Urticaria, Varicella, Viral exanthema Additional Comment PATIENT'S FINDINGS ON EXAM ARE CONSISTENT WITH SCABIES GIVEN THE DISTRIBUTION BEING WAVY, LINEAR AND PAPULAR Departure Time of Disposition: 10:03 Disposition: 01 HOME / SELF CARE / HOMELESS Impression: Primary Impression: Scabies Condition: Stable Discharge Instructions: Scabies, Adult Additional Instructions: Apply cream head to toe leave on for 10 hours and repeat in seven days, wash all clothing and bedding anything that can not be why she can tie up and a trash bag and leave in there for 72 hours Scabies is no longer contagious 24 hours after receiving the permethrin treatment Urine test was negative for infection Referrals: NO PRIMARY CARE PROVIDER (PCP) Prescriptions Permethrin 5% Cream* (Elimite 5% Cream*) 60 Gm Cream.gm. 1 APPLIC TOP ONCE, #60 GM massage into skin from head to soles of feet one time, leave on for 8-14 hours then remove by thorough washing. repeat in 7days. Prov: CHARIS LEYVA 12/11/24 Education Educated: Patient Educated regarding: diagnosis, treatment, need for follow up Signature Scribe Signature: x Attestation: CHARIS Escoto Dec 11, 2024 10:03
[2024-12-11] MEDS ORDERED: PERM60CR27 TOP (10:05)
== END 2024-12-11 10:38 | disposition home or self-care (01) ==
LOC: ER 08:35
DX: B86 Scabies (principal); F31.9 Bipolar disorder, unspecified; F20.9 Schizophrenia, unspecified; Z88.2 Allergy status to sulfonamides; Z79.899 Other long term (current) drug therapy
CPT/HCPCS: 81003; 81025; 99283

== ENCOUNTER 2024-12-18 16:34 | Emergency (ER) | payer SELFPAY ==
[~2024-12-18] VITALS: Ht 167.6 cm; Wt 94.2 kg
[2024-12-18 16:34] VITALS: BP 123/90; PULSE 117; RESP 16; TEMP 98.4; O2SAT 95
[~2024-12-18 16:34] MED LIST changes: +PERM60CR27 TOP
[2024-12-18 17:14] LABS: URINE HCG NEGATIVE (NEG)
[2024-12-18 17:15] LABS: LEUKOCYTE ESTERASE ,URINE NEGATIVE (Neg); NITRITES, URINE NEGATIVE (Neg); OCCULT BLOOD,URINE NEGATIVE (Neg); UA COLLECTION TYPE CLN CATCH MIDSTREAM
[2024-12-18 17:24] LABS: MUCUS STRANDS NONE SEEN /LPF (Neg); SQUAMOUS EPITHELIAL CELL,UR MANY /LPF (FEW)
[2024-12-18 17:31] LABS: MEAN PLATELET VOLUME 9.6 FL (7.4-10.4); RED CELL DISTRIBUTION WIDTH 13.3 % (11.5-14.5)
[2024-12-18 17:40] LABS: CREATININE 0.65 MG/DL (0.40-0.90); TOTAL CARBON DIOXIDE 25.5 MMOL/L (24-32); eCRCL 116 ML/MIN; eGFR > 90 ML/MIN
[2024-12-19] MEDS ORDERED: ACET-3174 PO (16:50)
[2024-12-19] MEDS ORDERED: IBUP600T52 PO (16:50)
== END 2024-12-18 21:02 | disposition left against medical advice (07) ==
LOC: ER 16:34
DX: R10.84 Generalized abdominal pain (principal)
CPT/HCPCS: 36415; 80053; 81001; 81025; 83605; 83690; 85025; 99281

== ENCOUNTER 2024-12-19 12:51 | Emergency (ER) | payer MEDICAID ==
[~2024-12-19] VITALS: Ht 167.6 cm; Wt 100.0 kg
[2024-12-19 13:05] VITALS: TEMP 99.8
[2024-12-19 13:51] LABS: RED CELL DISTRIBUTION WIDTH 13.2 % (11.5-14.5)
[2024-12-19 13:53] LABS: MEAN PLATELET VOLUME 9.2 FL (7.4-10.4)
[2024-12-19 13:54] LABS: LEUKOCYTE ESTERASE ,URINE NEGATIVE (Neg); NITRITES, URINE NEGATIVE (Neg); OCCULT BLOOD,URINE NEGATIVE (Neg)
[2024-12-19 13:57] LABS: UA COLLECTION TYPE CLN CATCH MIDSTREAM
[2024-12-19 14:01] LABS: CREATININE 0.68 MG/DL (0.40-0.90); TOTAL CARBON DIOXIDE 29.6 MMOL/L (24-32); eCRCL 111 ML/MIN; eGFR > 90 ML/MIN
[2024-12-19 14:43] LABS: LYMPHOCYTES % (MANUAL) 24.0 % (21-51); MONOCYTES % (MANUAL) 7.0 % (2-12); NEUTROPHILS % (MANUAL) 69.0 % (42-75); PLATELET ESTIMATE DECREASED
[2024-12-19 15:06] VITALS: BP 115/86; PULSE 119; RESP 16; O2SAT 95
--- NOTE | 2024-12-19 16:05 | ELECTROCARDIOGRAPH REPORT ---
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 Kelley Suarez Measurements Intervals [place] Rate: 115 P: 58 WV: 139 QRS: 89 QRSD: 96 T: 16 QT: 318 QTc: 440 Interpretive Statements Sinus tachycardia Baseline wander in lead(s) II,III,aVF,V1 Electronically Signed On 12-19-2024 19:25:[address] Kelley Suarez Please click the below link to view image of tracing.
--- NOTE | 2024-12-19 16:46 | Physician Documentation ---
History of Present Illness ~ Chief Complaint: Cold, cough & congestion Stated Complaint: FLU LIKE SYMPTOMS/ CHEST PAIN Time Seen by MD: 15:41 OK to notify your PCP?: Yes Primary Medical Doctor: KARLEE Source: patient, RN/MD Mode of Arrival: Ambulatory HPI Patient is seen today with complaints of cough cold congestion with complaints of body aches and chills without any measured temperature or fever. Patient denies any shortness of breath or abdominal pain or nausea, vomiting, diarrhea. She currently denies any chest pain states she does have some chest discomfort w hen coughing. She has no other concern or complaint at this time. Medication Reconciliation Allergies: Coded Allergies: Sulfa (Sulfonamide Antibiotics) (Verified Allergy, Unknown, 12/19/24) Scheduled Aripiprazole (Abilify), 1 TAB PO DAILY, (Reported) Cetirizine HCl (Zyrtec), 1 TAB PO DAILY, (Reported) Cholecalciferol (Vitamin D3) (Vitamin D-3), 2,000 UNIT PO DAILY, (Reported) Divalproex Sodium (Depakote Er), 2 TAB PO HS, (Reported) Docusate Sodium (Colace), 1 CAP PO BID, (Reported) Fenofibrate Nanocrystallized (TRICOR tablet), 1 TAB PO DAILY, (Reported) Ferrous Sulfate* (Ferrous Sulfate*), 1 TAB PO TID, (Reported) Fluticasone Propionate (Fluticasone Propionate), 2 SPRAYS BOTHNARES DAILY, (Reported) Hydroxyzine Hcl* (Atarax*), 2 TAB PO HS, (Reported) Montelukast Sodium (Singulair), 1 TAB PO HS, (Reported) Paliperidone (Paliperidone ER), 2 TAB PO HS, (Reported) Permethrin 5% Cream* (Elimite 5% Cream*), 1 APPLIC TOP ONCE Quetiapine Fumarate (Seroquel), 1 TAB PO HS, (Reported) Quetiapine Fumarate (Seroquel), 100 MG PO DAILY, (Reported) Topiramate (Topiramate), 3 TAB PO HS, (Reported) Trazodone HCl (Trazodone HCl), 3 TAB PO HS, (Reported) [clindamycin 1%], 1 TOP BID, (Reported) Scheduled PRN Dicyclomine HCl (Dicyclomine HCl), 1 TAB PO Q6H PRN for abdominal cramps Hydroxyzine Hcl* (Atarax*), 1 TAB PO Q12H PRN for for anxiety/agitation, (Reported) Ibuprofen (Ibuprofen), 1 TAB PO Q8H PRN for pain, (Reported) Quetiapine Fumarate (Seroquel), 25 MG PO Q12H PRN for for anxiety/agitation, (Reported) Past Medical History Past Medical History: Cirrohsis, Renal Disease, *PSYCH*, Bipolar, Schizophrenia Past Surgical History: no surgical history Patient History: Patient reports no known family medical history. Alcohol Use: None Drug Use: none Lives with: Other Lives In: Assisted Care Occupation: disabled Review of Systems Constitutional: Denies: chills, fever, weakness Eyes: Denies: pain, blurred vision ENT: Denies: ear pain, nose pain, throat pain, mouth pain Respiratory: Denies: cough, shortness of breath Cardiovascular: Denies: chest pain, palpitations Gastrointestinal: Denies: abdominal pain, nausea, vomiting Genitourinary: Denies: burning, dysuria Female Genitalia: Denies: vaginal discharge, pelvic pain Neurological: Denies: headache, dizziness Musculoskeletal: Denies: pain, swelling Integumentary: Denies: rash, lesions Allergic/Immunologic: Denies: hives, itching Hematologic/Lymphatic: Denies: no symptoms reported Psychiatric: Denies: depression, anxiety Physical Exam Vital Signs: Temperature: 99.8, Source: Oral, Heart Rate: 119, Respiratory Rate: 16, BP: 115/86, Pulse Oximetry: 95, Weight: 100.000 Oxygen Flow Rate: 0 Physical Exam General: Awake and Alert, no acute distress. HEENT: Conjunctiva pink, Sclera clear, Mucus Membranes moist. Neck: Supple without masses and tenderness. Resp: Unlabored. Lungs clear to auscultation bilaterally. Heart: Regular Rate and rhythm, normal S1 and S2 without murmur, rub or gallop. Abdomen: Soft and non tender no organomegaly Extremities: No cyanosis,clubbing or edema. Skin: Warm and Dry. Progress Results/Orders Results/Orders Vital Signs 12/19/24 12/19/24 13:05 15:06 Temp 99.8 Pulse 122 119 Resp 16 16 B/P (MAP) 136/92 115/86 (96) Pulse Ox 97 95 O2 Flow Rate 0 Laboratory Tests Test 12/19/24 13:30 12/19/24 13:35 12/19/24 13:41 Urine Specimen Description Cln catch midstream Urine Color Yellow Urine Clarity Clear Urine pH 7.5 Urine Specific Dickens 1.015 Urine Protein Negative Urine Glucose (UA) Negative Urine Ketones Negative Urine Occult Blood Negative Urine Nitrite Negative Urine Bilirubin Negative Urine Urobilinogen 0.2 Urine Leukocyte Esterase Negative Urine Culture Indicated Not ind Volume Urine Centrifuged 10 ml Urine Comment Lactic Acid Level 1.1 White Blood Count 2.8 L Red Blood Count 4.75 Hemoglobin 13.8 Hematocrit 40.6 Mean Corpuscular Volume 85.5 Mean Corpuscular Hemoglobin 29.0 Mean Corpuscular Hemoglobin Concent 33.9 Red Cell Distribution Width 13.2 Platelet Count 69 L Mean Platelet Volume 9.2 Neutrophils (%) (Auto) 66.6 Lymphocytes (%) (Auto) 23.8 Monocytes (%) (Auto) 8.8 Eosinophils (%) (Auto) 0.4 Basophils (%) (Auto) 0.4 Neutrophils # (Auto) 1.9 Lymphocytes # (Auto) 0.7 L Monocytes # (Auto) 0.2 Eosinophils # (Auto) 0.0 Basophils # (Auto) 0.0 CBC Comment Differential Total Cells Counted 100 Neutrophils % (Manual) 69.0 Lymphocytes % (Manual) 24.0 Monocytes % (Manual) 7.0 Platelet Estimate Decreased Red Blood Cell Morphology Normal Basophilic Stippling Sodium Level 144 Potassium Level 4.0 Chloride Level 108 H Carbon Dioxide Level 29.6 Anion Gap 6 L Blood Urea Nitrogen 15 Creatinine 0.68 Estimated GFR/1.73 m2 > 90 BUN/Creatinine Ratio 22.1 H Glucose Level 104 Calcium Level 9.0 Albumin 3.4 Procalcitonin < 0.05 Chemistry Comments Microbiology Date/Time Source Procedure Growth Status 12/19/24 13:41 Blood Arm Right Blood Culture - Preliminary NEGATIVE (LESS THAN 24 HOURS) Resulted Medical Decision Making Additional information obtaine: N/A Findings Patient is seen today with care providers with complaints of cough cold congestion with complaints of body aches and chills without any measured temperature or fever. Patient denies any shortness of breath or abdominal pain or nausea, vomiting, diarrhea. She currently denies any chest pain states she does have some chest discomfort when coughing. She has no other concern or complaint at this time. Patient will increase rest and fluids and will take Tylenol and ibuprofen as prescribed for symptomatic relief. They will continue monitoring patient's symptoms closely and patient will follow up with primary care in 3-5 days if no better as needed sooner. Return to ED with any worsening, concerning or changing symptoms. Differential Dx:Considerations: Include: Influenza, Otitis media, Pharyngitis- Viral, Sinusitis, URI Departure Disposition: HOME / SELF CARE / HOMELESS Impression: Primary Impression: Cough Qualified Codes: R05.1 - Acute cough Additional Impression: Viral URI with cough Condition: Stable Discharge Instructions: Upper Respiratory Infection, Adult Additional Instructions: Patient will increase rest and fluids and will take Tylenol and ibuprofen as prescribed for symptomatic relief. They will continue monitoring patient's symptoms closely and patient will follow up with primary care in 3-5 days if no better as needed sooner. Return to ED with any worsening, concerning or changing symptoms. Referrals: NO PRIMARY CARE PROVIDER (PCP) Prescriptions Ibuprofen (Ibuprofen) 600 Mg Tablet 1 TAB PO Q8H for pain for 10 Days, #30 TAB 0 Refills with food Prov: MAYRA WEBB 12/19/24 Acetaminophen (Tylenol 8 Hour) 650 Mg Tablet.er 1 TAB PO TID PRN PRN for abdominal cramps for 10 Days, #30 TAB 0 Refills NEEDED FOR PAIN Prov: MAYRA WEBB 12/19/24 Signature Scribe Signature: No scribe Attestation: No scribe MAYRA WEBB Dec 19, 2024 16:46
[2024-12-19] MEDS ORDERED: IBUP600T52 PO (16:50)
[2024-12-19] MEDS ORDERED: ACET-3174 PO (16:50)
== END 2024-12-19 17:05 | disposition home or self-care (01) ==
LOC: ER 12:51
DX: J06.9 Acute upper respiratory infection, unspecified (principal); R05.9 Cough, unspecified; F31.9 Bipolar disorder, unspecified; F20.9 Schizophrenia, unspecified; Z88.2 Allergy status to sulfonamides; Z79.899 Other long term (current) drug therapy
CPT/HCPCS: 36415; 80048; 81003; 83605; 84145; 85007; 85025; 87040; 93005; 99284

== ENCOUNTER 2024-12-24 02:26 | Emergency (ER) | payer MEDICAID ==
[~2024-12-24] VITALS: Ht 162.6 cm; Wt 104.5 kg
[~2024-12-24 02:26] MED LIST changes: +ACET-3174 PO
[2024-12-24 02:41] VITALS: BP 146/82; PULSE 96; RESP 16; O2SAT 96
--- NOTE | 2024-12-24 02:48 | Physician Documentation ---
History of Present Illness ~ Chief Complaint: See Chief Complaint Stated Complaint: MENTAL HEALTH EVAL Time Seen by MD: 02:47 Primary Medical Doctor: KARLEE HPI 34-year-old female brought in for mental health evaluation Per report, the patient got angry because she was not allowed to see her boyfriend today. Here in the ED, the patient tells me she is no longer angry. She does state that she has the flu, reports having congestion and cough. When asked her if she thinks she needs to be in the emergency department she says no. She does want a snack. Medication Reconciliation Allergies: Coded Allergies: Sulfa (Sulfonamide Antibiotics) (Verified Allergy, Unknown, 12/19/24) Scheduled Aripiprazole (Abilify), 1 TAB PO DAILY, (Reported) Cetirizine HCl (Zyrtec), 1 TAB PO DAILY, (Reported) Cholecalciferol (Vitamin D3) (Vitamin D-3), 2,000 UNIT PO DAILY, (Reported) Divalproex Sodium (Depakote Er), 2 TAB PO HS, (Reported) Docusate Sodium (Colace), 1 CAP PO BID, (Reported) Fenofibrate Nanocrystallized (TRICOR tablet), 1 TAB PO DAILY, (Reported) Ferrous Sulfate* (Ferrous Sulfate*), 1 TAB PO TID, (Reported) Fluticasone Propionate (Fluticasone Propionate), 2 SPRAYS BOTHNARES DAILY, (Reported) Hydroxyzine Hcl* (Atarax*), 2 TAB PO HS, (Reported) Ibuprofen (Ibuprofen), 1 TAB PO Q8H Montelukast Sodium (Singulair), 1 TAB PO HS, (Reported) Paliperidone (Paliperidone ER), 2 TAB PO HS, (Reported) Permethrin 5% Cream* (Elimite 5% Cream*), 1 APPLIC TOP ONCE Quetiapine Fumarate (Seroquel), 1 TAB PO HS, (Reported) Quetiapine Fumarate (Seroquel), 100 MG PO DAILY, (Reported) Topiramate (Topiramate), 3 TAB PO HS, (Reported) Trazodone HCl (Trazodone HCl), 3 TAB PO HS, (Reported) [clindamycin 1%], 1 TOP BID, (Reported) Scheduled PRN Acetaminophen (Tylenol 8 Hour), 1 TAB PO TID PRN PRN for abdominal cramps Dicyclomine HCl (Dicyclomine HCl), 1 TAB PO Q6H PRN for abdominal cramps Hydroxyzine Hcl* (Atarax*), 1 TAB PO Q12H PRN for for anxiety/agitation, (Reported) Ibuprofen (Ibuprofen), 1 TAB PO Q8H PRN for pain, (Reported) Quetiapine Fumarate (Seroquel), 25 MG PO Q12H PRN for for anxiety/agitation, (Reported) Past Medical History Past Medical History: Cirrohsis, Renal Disease, *PSYCH*, Bipolar, Schizophrenia Past Surgical History: no surgical history Patient History: Patient reports no known family medical history. Alcohol Use: None Drug Use: none Lives with: Other Lives In: Assisted Care Occupation: disabled Review of Systems ENT: Reports: nose congestion Respiratory: Reports: cough Psychiatric: Reports: other (Anger) Physical Exam Vital Signs: Heart Rate: 96, Respiratory Rate: 16, BP: 146/82, Pulse Oximetry: 96, Weight: 104.550 Physical Exam General: This is a young woman who is lying in bed listening to music on her phone, not in distress HEENT: Atraumatic, oropharynx is moist. Clear nasal congestion present Heart: Mild tachycardic, appears regular Lungs: normal work of breathing, normal oxygen saturation on room air Neuro: Alert and oriented Psychiatric: Calm and cooperative with exam. She does not display signs of anger or agitation at this time. 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 Here in the ED, she does not appear angry, does not report any acute medical concerns. She does have congestion and a cough, but does not appear in any distress. He is unclear exactly why she was brought to the emergency department, but she does not appear to require acute mental health evaluation. She was given information about anger management and discharged Departure Time of Disposition: 02:52 Disposition: 01 HOME / SELF CARE / HOMELESS Impression: Primary Impression: Feeling angry Condition: Improved Discharge Instructions: Managing Anger, Adult Referrals: NO PRIMARY CARE PROVIDER (PCP) Education Educated: Patient Educated regarding: diagnosis, need for follow up Signature Scribe Signature: natacha Attestation: MARGOT Nix MD Dec 24, 2024 02:48
== END 2024-12-24 03:27 | disposition home or self-care (01) ==
LOC: ER 02:27
DX: Z00.8 Encounter for other general examination (principal); F31.9 Bipolar disorder, unspecified; F20.9 Schizophrenia, unspecified; Z88.2 Allergy status to sulfonamides; Z79.899 Other long term (current) drug therapy
CPT/HCPCS: 99283; Q9967

== ENCOUNTER 2024-12-24 17:45 | Emergency (ER) | payer MEDICAID ==
[~2024-12-24] VITALS: Ht 160 cm; Wt 93.2 kg
[2024-12-24 17:50] VITALS: BP 150/102; PULSE 121; TEMP 97.3; O2SAT 96
--- NOTE | 2024-12-24 18:01 | Physician Documentation ---
History of Present Illness ~ Chief Complaint: Suicidal Ideation Stated Complaint: 5150 Time Seen by MD: 18:10 Primary Medical Doctor: [facility] HPI 34 yr old female brought from senior living with report of intent to harm self and others. Notes hx of these feelings in the past. Medication Reconciliation Allergies: Coded Allergies: Sulfa (Sulfonamide Antibiotics) (Verified Allergy, Unknown, 12/24/24) Scheduled Aripiprazole (Abilify), 1 TAB PO DAILY, (Reported) Cetirizine HCl (Zyrtec), 1 TAB PO DAILY, (Reported) Cholecalciferol (Vitamin D3) (Vitamin D-3), 2,000 UNIT PO DAILY, (Reported) Divalproex Sodium (Depakote Er), 2 TAB PO HS, (Reported) Docusate Sodium (Colace), 1 CAP PO BID, (Reported) Fenofibrate Nanocrystallized (TRICOR tablet), 1 TAB PO DAILY, (Reported) Ferrous Sulfate* (Ferrous Sulfate*), 1 TAB PO TID, (Reported) Fluticasone Propionate (Fluticasone Propionate), 2 SPRAYS BOTHNARES DAILY, (Reported) Hydroxyzine Hcl* (Atarax*), 2 TAB PO HS, (Reported) Ibuprofen (Ibuprofen), 1 TAB PO Q8H Montelukast Sodium (Singulair), 1 TAB PO HS, (Reported) Paliperidone (Paliperidone ER), 2 TAB PO HS, (Reported) Permethrin 5% Cream* (Elimite 5% Cream*), 1 APPLIC TOP ONCE Quetiapine Fumarate (Seroquel), 1 TAB PO HS, (Reported) Quetiapine Fumarate (Seroquel), 100 MG PO DAILY, (Reported) Topiramate (Topiramate), 3 TAB PO HS, (Reported) Trazodone HCl (Trazodone HCl), 3 TAB PO HS, (Reported) [clindamycin 1%], 1 TOP BID, (Reported) Scheduled PRN Acetaminophen (Tylenol 8 Hour), 1 TAB PO TID PRN PRN for abdominal cramps Dicyclomine HCl (Dicyclomine HCl), 1 TAB PO Q6H PRN for abdominal cramps Hydroxyzine Hcl* (Atarax*), 1 TAB PO Q12H PRN for for anxiety/agitation, (Reported) Ibuprofen (Ibuprofen), 1 TAB PO Q8H PRN for pain, (Reported) Quetiapine Fumarate (Seroquel), 25 MG PO Q12H PRN for for anxiety/agitation, (Reported) Past Medical History Past Medical History: Cirrohsis, Renal Disease, *PSYCH*, Bipolar, Schizophrenia Past Surgical History: no surgical history Patient History: Patient reports no known family medical history. Alcohol Use: None Drug Use: none Lives with: Other Lives In: Assisted Care Occupation: disabled Review of Systems ROS As stated above in the HPI, otherwise all systems are reviewed and negative. Physical Exam Vital Signs: Temperature: 97.3, Source: Oral, Heart Rate: 121, Respiratory Rate: 18, BP: 150/102, Pulse Oximetry: 96, Weight: 93.200 Oxygen Flow Rate: 0 Physical Exam General: Alert, anxious appearing. HEENT: PERRL, EOMI, no injection, moist mucous membranes. Neck: Full range of motion. Respiratory: Lungs clear, no respiratory distress. Chest: No accessory muscle use. Cardiovascular: Regular rate and rhythm, no murmurs. Tachycardic. Gastrointestinal: Soft, nontender, nondistended. Bowels sounds present. Extremities: Normal range of motion, no deformity. Neurologic: Oriented x4. Psychiatric: Prefers to communicate via tablet. Has pacifier in mouth, carries a doll and a stuffed toy and has ear buds in upon presentation. Initially somewhat anxious in triage with attempts to hit at triage nurse but did calm easily with re-direction. Skin: Normal color, warm and dry. No edema, no ecchymosis. Progress Progress Note 1809: After further discussion with patient and notifying her that if she is to stay for her suicidal feelings, she will need to surrender all her belongings, she writes on her tablet, "I want to go home." When questioned if she is still experiencing thoughts of self harm or harm to others, she shakes her head "no." She will be treated with hydroxyzine x 1 tablet and discharged. Results/Orders Results/Orders Orders - SUDHA GAMBOA NP Med Rec (12/24/24 18:05) Close Observation Level (12/24/24 18:05) Regular Diet (12/25/24 Breakfast) Hydroxyzine Tablet (Atarax Tablet) (12/24/24 18:15) Vital Signs 12/24/24 17:50 Temp 97.3 Pulse 121 Resp 18 B/P (MAP) 150/102 Pulse Ox 96 O2 Flow Rate 0 Medical Decision Making Additional information obtaine: old records, compounder flavorings Findings This patient was last seen in the ER watch and clock maker and repairer hours of today for anger. This was reportedly due to being told that she can not see her boyfriend. Differential Dx:Considerations: Include: Alcohol abuse, Anxiety, Bipolar disorder, Conversion disorder, Depression, Encephaloathy, Homicidal, Panic disorder, Personality disorder, Schizophrenia, Substance abuse, Suicidal Departure Time of Disposition: 18:10 Disposition: 01 HOME / SELF CARE / HOMELESS Impression: Primary Impression: Suicidal ideation Discharge Instructions: Suicidal Feelings: How to Help Yourself Additional Instructions: You were given hydroxyzine for anxiety in the ER. Please see your psychiatrist soon. Return if worse. Referrals: NO PRIMARY CARE PROVIDER (PCP) Education Educated: Patient, Other Educated regarding: diagnosis, treatment, prognosis, need for follow up Signature Scribe Signature: x Attestation: The note accurately reflects work and decisions made by me.Sudha Lynch NP 12/24/24 18:14 SUDHA GAMBOA NP Dec 24, 2024 18:01
[2024-12-24 18:35] VITALS: RESP 19
== END 2024-12-24 19:00 | disposition home or self-care (01) ==
LOC: ER 17:46
DX: R45.851 Suicidal ideations (principal); F31.9 Bipolar disorder, unspecified; F20.9 Schizophrenia, unspecified; Z88.2 Allergy status to sulfonamides; Z79.899 Other long term (current) drug therapy; Z20.822 Contact with and (suspected) exposure to COVID-19
CPT/HCPCS: 99284; Q0177

== ENCOUNTER 2024-12-25 17:09 | Emergency (ER) | payer MEDICAID ==
[~2024-12-25] VITALS: Ht 160 cm; Wt 94.8 kg
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
[2024-12-25 18:02] LABS: LEUKOCYTE ESTERASE ,URINE SMALL (Neg); NITRITES, URINE NEGATIVE (Neg); OCCULT BLOOD,URINE NEGATIVE (Neg); URINE HCG NEGATIVE (NEG)
[2024-12-25 18:05] LABS: UA COLLECTION TYPE VOIDED
[2024-12-25 18:08] LABS: MUCUS STRANDS NONE SEEN /LPF (Neg); SQUAMOUS EPITHELIAL CELL,UR MANY /LPF (FEW)
[2024-12-25 18:14] LABS: URINE AMPHETAMINE SCREEN NEGATIVE (Neg); URINE BARBITUATE SCREEN NEGATIVE (Neg); URINE BENZODIAZEPINES SCREEN NEGATIVE (Neg); URINE CANNABINOID SCREEN NEGATIVE (Neg); URINE COCAINE SCREEN NEGATIVE (Neg); URINE METHADONE SCREEN NEGATIVE (Neg); URINE OPIATE SCREEN NEGATIVE (Neg); URINE PHENCYCLIDINE SCREEN NEGATIVE (Neg)
[2024-12-25 18:26] LABS: MEAN PLATELET VOLUME 9.4 FL (7.4-10.4); RED CELL DISTRIBUTION WIDTH 13.1 % (11.5-14.5)
[2024-12-25 18:46] LABS: CREATININE 0.69 MG/DL (0.40-0.90); ETHANOL < 10 MG/DL (<10); TOTAL CARBON DIOXIDE 29.3 MMOL/L (24-32); eCRCL 97 ML/MIN; eGFR > 90 ML/MIN
[2024-12-26 08:03] VITALS: BP 114/82; PULSE 90; RESP 20; O2SAT 98
[2024-12-26] MEDS: cholecalciferol (vitamin D3) 1,000 unit (25mcg) tablet PO SCH (11:53)
[2024-12-26 12:31] VITALS: TEMP 97.5
[2024-12-26] MEDS ORDERED: docusate sod 100mg capsule PO SCH (20:00)
[2024-12-26] MEDS ORDERED: divalproex sod 250mg ER (24-hour) tablet PO SCH (21:00)
[2024-12-26] MEDS ORDERED: PALIPERIDONE 3 MG TAB.ER.24 PO SCH (21:00)
[2024-12-27] MEDS ORDERED: fluticasone nasal spray 16GM bottle NS SCH (08:00)
== END 2024-12-26 12:42 | disposition home or self-care (01) ==
LOC: ER 17:09
DX: F99 Mental disorder, not otherwise specified (principal); F31.9 Bipolar disorder, unspecified; F20.9 Schizophrenia, unspecified; Z88.2 Allergy status to sulfonamides; Z79.899 Other long term (current) drug therapy; Z20.822 Contact with and (suspected) exposure to COVID-19
CPT/HCPCS: 36415; 80048; 80305; 80320; 81001; 81025; 84443; 85025; 87811; 99284

== ENCOUNTER 2024-12-31 16:03 | Emergency (ER) | payer MEDICAID ==
[~2024-12-31] VITALS: Ht 165.1 cm; Wt 92.2 kg
[~2024-12-31 16:03] MED LIST changes: -ACET-3174 PO; -DICY20TA17 PO; -PERM60CR27 TOP
[2024-12-31 16:16] VITALS: BP 132/84; PULSE 121; RESP 22; TEMP 97.3; O2SAT 95
== END 2024-12-31 18:20 | disposition left against medical advice (07) ==
LOC: ER 16:03
DX: K62.5 Hemorrhage of anus and rectum (principal); Z88.2 Allergy status to sulfonamides; Z53.21 Procedure and treatment not carried out due to patient leaving prior to being seen by health care provider
CPT/HCPCS: 99281

== ENCOUNTER → 2025-01-08 | Emergency (ER) | payer MEDICAID ==
[~2025-01-08] VITALS: Ht 162.6 cm; Wt 90.0 kg
[2025-01-08 16:12] VITALS: BP 140/89; PULSE 110; RESP 16; TEMP 97.2; O2SAT 97
--- NOTE | 2025-01-08 16:21 | Physician Documentation ---
History of Present Illness ~ Chief Complaint: Mental Health Eval Stated Complaint: SUICIDALITY Time Seen by MD: 16:18 Primary Medical Doctor: KARLEE Source: patient, other Mode of Arrival: Ambulatory HPI 34-year-old female living in a skilled facility states that she is feeling suicidal after not being able to have snacks in her room as well as not happy with her roommate. Patient is with staff and they state that she was able to have snacks but now it is policy from the house to not and she told them that she wanted to go to the hospital. Clearly using manipulation at this time staff brought her in to the hospital Medication Reconciliation Allergies: Coded Allergies: Sulfa (Sulfonamide Antibiotics) (Verified Allergy, Unknown, 12/31/24) Scheduled Aripiprazole (Abilify), 1 TAB PO DAILY, (Reported) Cetirizine HCl (Zyrtec), 1 TAB PO DAILY, (Reported) Cholecalciferol (Vitamin D3) (Vitamin D-3), 2,000 UNIT PO DAILY, (Reported) Divalproex Sodium (Depakote Er), 2 TAB PO HS, (Reported) Docusate Sodium (Colace), 1 CAP PO BID, (Reported) Fenofibrate Nanocrystallized (TRICOR tablet), 1 TAB PO DAILY, (Reported) Ferrous Sulfate* (Ferrous Sulfate*), 1 TAB PO TID, (Reported) Fluticasone Propionate (Fluticasone Propionate), 2 SPRAYS BOTHNARES DAILY, (Reported) Hydroxyzine Hcl* (Atarax*), 2 TAB PO HS, (Reported) Montelukast Sodium (Singulair), 1 TAB PO HS, (Reported) Paliperidone (Paliperidone ER), 2 TAB PO HS, (Reported) Quetiapine Fumarate (Seroquel), 1 TAB PO HS, (Reported) Quetiapine Fumarate (Seroquel), 100 MG PO DAILY, (Reported) Topiramate (Topiramate), 3 TAB PO HS, (Reported) Trazodone HCl (Trazodone HCl), 3 TAB PO HS, (Reported) [clindamycin 1%], 1 TOP BID, (Reported) Scheduled PRN Hydroxyzine Hcl* (Atarax*), 1 TAB PO Q12H PRN for for anxiety/agitation, (Reported) Ibuprofen (Ibuprofen), 1 TAB PO Q8H PRN for pain, (Reported) Quetiapine Fumarate (Seroquel), 25 MG PO Q12H PRN for for anxiety/agitation, (Reported) Past Medical History Past Medical History: Cirrohsis, Renal Disease, *PSYCH*, Bipolar, Schizophrenia Past Surgical History: no surgical history Patient History: Patient reports no known family medical history. Alcohol Use: None Drug Use: none Lives with: Other Lives In: Assisted Care Occupation: disabled Review of Systems All Other Systems at this time: Reviewed and Negative Psychiatric: Reports: see HPI Physical Exam Vital Signs: Temperature: 97.2, Source: Temporal, Heart Rate: 110, Respiratory Rate: 16, BP: 140/89, Pulse Oximetry: 97, Weight: 90.000 Oxygen Flow Rate: 0 Physical Exam General: Alert, no apparent distress. HEENT: moist mucous membranes. Neck: Full range of motion. Respiratory: No respiratory distress speaking in full sentences Chest: No accessory muscle use. Cardiovascular: Appears well perfused Neurologic: Oriented x4. Psychiatric: Normal mood and affect. Skin: Normal color, warm and dry. No edema, no ecchymosis. 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 Patient will be discharged from lobby Departure Time of Disposition: 16:20 Disposition: 01 HOME / SELF CARE / HOMELESS Impression: Primary Impression: Behavior disturbance Additional Impression: Manipulative behavior Condition: Stable Discharge Instructions: Medical Screening Exam Additional Instructions: Patient is clearly utilizing manipulating behavior to show discontent about not having snacks in her room as well as not wanting to be around her roommate. Patient is medically cleared to go back to her facility. Education Educated: Patient, Other Educated regarding: diagnosis, treatment, need for follow up Signature Scribe Signature: No scribe Attestation: The note accurately reflects work and decisions made by me.Vane Yung NP 01/08/25 16:21 VANE GONZALES NP Jan 08, 2025 16:21 DIANE BIRD MD Jan 09, 2025 13:20
== END | disposition home or self-care (01) ==
LOC: ER 16:08
DX: F91.9 Conduct disorder, unspecified (principal); Z88.2 Allergy status to sulfonamides; Z79.899 Other long term (current) drug therapy
CPT/HCPCS: 99282